=== PATIENT | female | born 1945 | race Caucasian/White ===

== ENCOUNTER 2018-07-10 18:06 | Inpatient (IN) | payer OTHER ==
--- NOTE | 2018-07-10 19:12 | PDOC ---
History of Present Illness - General Chief Complaint: Urinary Problem Stated Complaint: PAINFUL URINATION/LWR BACK PAIN Time Seen by Provider: 07/10/18 19:11 History Source: Patient, Family (Daughter) Exam Limitations: No Limitations - History of Present Illness Initial Comments: Pt is a 73 yo F, with extensive PMH (DM, HTN, HLD, CVA, obesity, recurrent UTI, thrombocytopenia, and asthma), who is presenting with complaints of suprapubic pain, "pressure feeling" with urination/dysuria, and urinary urgency/frequency x3 days. Pt was treated for UTI ~2 weeks ago by her PCP (unsure of which abx she took) for 14 days, and finished about 3 days ago. She has also had constipation x4 days, and took a stool softener with no relief. Pt denies any fevers/chills, headache, vision changes, syncope, chest pain, palpitations, SOB , nausea/vomiting, diarrhea/constipation, or leg swelling. Attempted to call pts pharmacy to determine abx, but pharmacy is closed. Pt PCP out of network. Social: Pt denies any cigarette, alcohol, or drug use. Pt denies any recent travel or sick contacts. Surgical: cholecystectomy 10 years ago. Family: no relevant history. 07/10/18 19:59 Past History - Travel Traveled outside of the country in the last 30 days: No Close contact w/someone who was outside of country & ill: No - Past Medical History Allergies/Adverse Reactions: Allergies Allergy/AdvReac Type Severity Reaction Status Date / Time aspirin AdvReac Unknown Verified 07/10/18 18:12 Home Medications: Ambulatory Orders Danazol [Danocrine -] 200 mg PO BID #0 capsule 09/21/12 Levothyroxine [Synthroid -] 25 mcg PO DAILY #0 tablet 09/21/12 Montelukast Na [Singulair -] 10 mg PO HS #0 tablet 09/21/12 Raloxifene HCl [Evista] 60 mg PO DAILY #0 tablet 09/21/12 Tiotropium [place] [Spiriva] 1 inh IH DAILY #0 inh 09/21/12 Diltiazem HCl [Diltiazem ER] 1 mg PO DAILY 04/04/16 Clopidogrel Bisulfate [Plavix] 75 mg PO DAILY 07/10/18 Dapagliflozin Propanediol [Farxiga] 10 mg PO DAILY 07/10/18 Ergocalciferol (Vitamin D2) [Vitamin D2] 50,000 unit PO WEEKLY 07/10/18 Insulin Glargine,Hum.rec.anlog [Lantus Solostar PEN -] 25 units SQ BID 07/10/18 Insulin NPL/Insulin Lispro [Humalog Mix 50-50 Pen] 25 unit SQ BID 07/10/18 [place]-3 Fatty Acids/Fish Oil [Fish Oil 1,000 mg Capsule] 1 each PO DAILY Omeprazole [Prilosec (RX)] 40 mg PO DAILY 07/10/18 Pioglitazone HCl 45 mg PO DAILY 07/10/18 Rosuvastatin [Crestor -] 20 mg PO DAILY 07/10/18 Anemia: No Asthma: Yes Cancer: No Cardiac Disorders: No CVA: No COPD: No CHF: No Dementia: No Diabetes: Yes GI Disorders: No Disorders: No HTN: Yes Hypercholesterolemia: Yes Liver Disease: No Seizures: No Thyroid Disease: Yes - Surgical History Abdominal Surgery: No Appendectomy: No Cardiac Surgery: No Cholecystectomy: Yes Lung Surgery: No Neurologic Surgery: No Orthopedic Surgery: No - Suicide/Smoking/Psychosocial Hx Smoking Status: No Smoking History: Never smoked Have you smoked in the past 12 months: No Number of Cigarettes Smoked Daily: 0 Hx Alcohol Use: No Drug/Substance Use Hx: No Substance Use Type: None Hx Substance Use Treatment: No Review of Systems - Review of Systems Able to Perform ROS?: Yes Is the patient limited Turkish proficient: No Constitutional: Yes: Loss of Appetite. No: Chills, Diaphoresis, Fever, Malaise , Weakness HEENTM: No: Blurred Vision, Recent change in vision, Nose Congestion, Throat Pain, Throat Swelling, Difficulty Swallowing Respiratory: No: Cough, Orthopnea, Shortness of Breath Cardiac (ROS): No: Chest Pain, Edema, Irregular Heart Rate, Lightheadedness, Palpitations, Syncope, Chest Tightness ABD/GI: Yes: Constipated, Poor Appetite. No: Abdominal Distended, Blood Streaked Bowels, Diarrhea, Nausea, Poor Fluid Intake, Rectal Bleeding, Vomiting , Indigestion : Yes: Burning, Dysuria, Frequency, Pain, Urgency. No: Discharge, Flank Pain , Hematuria, Incontinence Musculoskeletal: No: Back Pain, Joint Pain, Muscle Pain, Muscle Weakness Integumentary: No: Rash Neurological: No: Headache, Numbness, Weakness, Unsteady Gait, Dizziness Psychiatric: No: Change in Appetite Endocrine: No: Increased Urine, Change in Weight Hematologic/Lymphatic: Yes: Blood Clots (CVA, on plavix), Other ( thrombocytopenia in the past, chronic). No: Anemia, Easy Bleeding, Easy Bruising All Other Systems: Reviewed and Negative *Physical Exam - Vital Signs Last Vital Signs Temp Pulse Resp BP Pulse Ox 98.4 F 95 H 18 154/67 96 07/10/18 18:10 07/10/18 18:10 07/10/18 18:10 07/10/18 18:10 07/10/18 18:10 - Physical Exam Comments: Pt mildly tachycardic (95), pt afebrile. Pt in NAD, obese body habitus. PE showed pt alert and oriented. layaway clerk generally intact, muscular strength and sensation intact. Eyes PERRLA, EOMI. Oropharynx without erythema or exudates, no LAD b/l. Dry oral mucosa with decreased skin turgor. No nasal congestion, hearing intact. Clear heart sounds, S1/S2, no JVD, b/l pedal edema, or heart murmur. Clear lung sounds, no respiratory distress, wheezes, crackles, or accessory muscle use. Diffuse lower abdominal tenderness to palpation, no rebound, no guarding. NO CVA tenderness. Abdomen soft, protuberant, and with normoactive bowel sounds. Skin without jaundice or rash. 07/10/18 19:59 Moderate Sedation - Procedure Monitoring Vital Signs: Procedure Monitoring Vital Signs Temperature 98.4 F 07/10/18 18:10 Pulse Rate 95 H 07/10/18 18:10 Respiratory Rate 18 07/10/18 18:10 Blood Pressure 154/67 07/10/18 18:10 O2 Sat by Pulse Oximetry (%) 96 07/10/18 18:10 ED Treatment Course - LABORATORY CBC & Chemistry Diagram: 07/10/18 20:22 07/10/18 20:22 Medical Decision Making - Medical Decision Making Pt was seen at bedside, also will be seen by attending Dr. Joaquin. Pt presenting with complaints of suprapubic pain, "pressure feeling" with urination/dysuria, and urinary urgency/frequency x3 days. Pt was treated for UTI ~2 weeks ago by her PCP (unsure of which abx she took) for 14 days, and finished about 3 days ago. She has also had constipation x4 days, and took a stool softener with no relief. Pt denies any fevers/chills, headache, vision changes, syncope, chest pain, palpitations, SOB, nausea/vomiting, diarrhea/constipation, or leg swelling. Attempted to call pts pharmacy to determine abx, but pharmacy is closed. Pt PCP out of network. Pt mildly tachycardic (95), pt afebrile. Pt in NAD, obese body habitus. PE showed pt alert and oriented. layaway clerk generally intact, muscular strength and sensation intact. Eyes PERRLA, EOMI. Oropharynx without erythema or exudates, no LAD b/l. Dry oral mucosa with decreased skin turgor. No nasal congestion, hearing intact. Clear heart sounds, S1/S2, no JVD, b/l pedal edema, or heart murmur. Clear lung sounds, no respiratory distress, wheezes, crackles, or accessory muscle use. Diffuse lower abdominal tenderness to palpation, no rebound, no guarding. NO CVA tenderness. Abdomen soft, protuberant, and with normoactive bowel sounds. Skin without jaundice or rash. Considering recurrent/resistant UTI vs constipation vs urinary retention vs nephrolithiasis vs pyelonephrosis Ordered work-up including CBC, CMP, UA, urine culture. Provided glycerin suppository, miralax, and 1 L IV NS for improvement of constipation and dehydration. Will continue to reassess pt and monitor for symptomatic improvement. Pt will likely need to be admitted for IV abx if recurrent UTI, as pt already attempted outpatient treatment. 07/10/18 19:47 UA: 3+ gluc/trace ketones, 2+ blood, trace LE, WBC 65, RBC 44 -- providing 1 g IV ceftriaxone. Pt denying pain control at this time. Admission pending lab results. 07/10/18 20:28 CBC: appears hemoconcentrated, WBC 11.1, H/H 15.6/46.3 (far above pt baseline) - - pt receiving IVF 07/10/18 21:05 CMP: BUN/Cr 24/2.4 -- likely TANISHA -- pt receiving fluids Paging hospitalist team for admission. 07/10/18 21:20 Hospitalist team at bedside to see pt. Pt resting comfortably. 07/10/18 22:32 *DC/Admit/Observation/Transfer Diagnosis at time of Disposition: Acute kidney injury Urinary tract infection Qualifiers: Urinary tract infection type: site unspecified Hematuria presence: with hematuria Qualified Code(s): N39.0 - Urinary tract infection, site not specified Diabetes mellitus Qualifiers: Diabetes mellitus type: type 2 Diabetes mellitus usp insulin use: with usp use Diabetes mellitus complication status: with hyperglycemia Qualified Code(s): E11.65 - Type 2 diabetes mellitus with hyperglycemia - Discharge Dispostion Condition at time of disposition: Stable Decision to Admit order: Yes - Referrals Referrals: Marion Machuca MD [Non Staff, Medical] - - Patient Instructions - Post Discharge Activity
[2018-07-10] MEDS ORDERED: SODIUM CHLORIDE 1,000 ML IV STA (19:35)
[2018-07-10 19:37] LABS: URINE APPEARANCE SLCLOUDY; URINE BILIRUBIN NEGATIVE (<2.0 mg/dL); URINE COLOR LTYELLOW; URINE GLUCOSE (UA) 3+ (NEGATIVE); URINE KETONE TRACE (NEGATIVE); URINE LEUK ESTERASE TRACE (NEGATIVE); URINE NITRITE NEGATIVE (NEGATIVE); URINE PROTEIN 2+ (NEGATIVE); URINE UROBILINOGEN NEGATIVE mg/dL (0.2-1.0)
[2018-07-10] MEDS ORDERED: GLYCERIN 1 RECTAL SUPPOSITORY, ADULT PR ONE (19:45)
[2018-07-10] MEDS ORDERED: POLYETHYLENE GLYCOL 3350 119 GM BTL PO ONE (19:45)
[2018-07-10 19:51] LABS: URINE MUCUS RARE
[2018-07-10] MEDS ORDERED: CEFTRIAXONE 1 GM in DEXTROSE 5%-WATER - 100 ML IVPB ONE (20:15)
[2018-07-10 20:37] LABS: BASO % 0.3 % (0-2.0); EOS % 0.7 % (0-4.5); HEMATOCRIT 46.3 % (32.4-45.2); HEMOGLOBIN 15.6 GM/dL (10.7-15.3); LYMPH % 21.9 % (8-40); MCH 25.6 pg (25.7-33.7); MCHC 33.8 g/dl (32.0-36.0); MEAN CELL VOLUME 75.8 fl (80-96); MEAN PLT VOLUME 9.1 fl (7.5-11.1); MONO % 9.1 % (3.8-10.2); PLATELET COUNT 185 K/MM3 (134-434); RBC 6.11 M/mm3 (3.60-5.2); RDW 19.9 % (11.6-15.6); WHITE BLOOD COUNT 11.1 K/mm3 (4.0-10.0)
[2018-07-10] MEDS ORDERED: CEFTRIAXONE 1 GM/50 ML BAG ONE (20:48)
--- NOTE | 2018-07-10 20:51 | PDOC ---
Attending Attestation - HPI HPI: 07/10/18 21:04 The patient is a 73 year old female, with a significant past medical history of thrombocytopenia, asthma, DM, HTN, HLD, and recurrent UTIs, who presents to the emergency department with, suprapubic pain, urinary frequency, and dysuria. Patient was recently treated for a UTI on a 14 day, outpatient PO unknown antibiotics by her PCP Dr. Marion Machuca which she finished 3 days ago. While in the ED, patient endorses a diffuse itchy rash to the left arm/diffuse back and 4 days of constipation. She denies recent fevers, chills, headache or dizziness. She denies recent nausea, vomit, or diarrhea. She denies recent chest pain or shortness of breath. Allergies: Aspirin Past surgical history: Cholecystectomy: Social history: Nonsmoker. Denies EtOH use and recreational drug use. Primary Care Physician: Dr. Marion Machuca [phone] - Physicial Exam PE: 07/10/18 21:04 GENERAL: Awake, alert, and fully oriented, in no acute distress HEAD: No signs of trauma EYES: PERRLA, EOMI, sclera anicteric, conjunctiva clear ENT: Auricles normal inspection, hearing grossly normal, nares patent, oropharynx clear without exudates. Moist mucosa NECK: Normal ROM, supple, no lymphadenopathy, JVD, or masses LUNGS: Breath sounds equal, clear to auscultation bilaterally. No wheezes, and no crackles HEART: Regular rate and rhythm, normal S1 and S2, no murmurs, rubs or gallops +ABDOMEN: Suprapubic tenderness. Soft, normoactive bowel sounds. No guarding, no rebound. No masses EXTREMITIES: Normal range of motion, no edema. No clubbing or cyanosis. No cords, erythema, or tenderness NEUROLOGICAL: Cranial nerves II through XII grossly intact. Normal speech, normal gait +SKIN: Skin irritation to the left arm and diffuse back. <Rk Negron - Last Filed: 07/10/18 21:04> - Resident Resident Name: Gloria Martin - ED Attending Attestation I have performed the following: I have examined & evaluated the patient, The case was reviewed & discussed with the resident, I agree w/resident's findings & plan - Medical Decision Making 07/10/18 20:50 Pt has not eated much today; she is dehydrated. She keeps running to the bathroom with urinary frequency. Pt will be hydrated and we will treat her with IVabx. UA demonstrates UTI. She has elevated blood sugar. 07/10/18 21:27 Pt will be admitted for IV abx and hydration, as she has TANISHA, and as her UTI failed outpatient treatment recently. <Sherine Joaquin - Last Filed: 07/10/18 21:28> Attestations - Attestations 07/10/18 21:05 Documentation prepared by Rk Negron, acting as claim review medical director for Sherine Joaquin MD. <Rk Negron - Last Filed: 07/10/18 21:04>
[2018-07-10 21:08] LABS: ALBUMIN 2.7 g/dl (3.4-5.0); ALK PHOS 167 U/L (45-117); ANION GAP 12 MMOL/L (8-16); BILIRUBIN,TOTAL 0.6 mg/dL (0.2-1); BLOOD UREA NITROGEN 21 mg/dL (7-18); CALCIUM 9.2 mg/dL (8.5-10.1); CHLORIDE 98 mmol/L (98-107); CO2 24 mmol/L (21-32); CREATININE 2.4 mg/dL (0.55-1.3); GLUCOSE,RANDOM 156 mg/dL (74-106); POTASSIUM 3.5 mmol/L (3.5-5.1); SGOT/AST 43 U/L (15-37); SGPT/ALT 37 U/L (13-61); SODIUM 133 mmol/L (136-145); TOT PROT 7.6 g/dl (6.4-8.2)
--- NOTE | 2018-07-10 22:56 | PN ---
Teaching Attending Note Name of Resident: Silverio Matamoros ATTENDING PHYSICIAN STATEMENT I saw and evaluated the patient. I reviewed the resident's note and discussed the case with the resident. I agree with the resident's findings and plan as documented. SUBJECTIVE: Seen and examined; please refer to resident note for further historical information. lesley, king is a 73 y/o female presenting to the ER with a CC of suprapubic tenderness and dysuria; she was recently treated for UTI as an OP with unknown abx (calling pharmacy and family to bring in bottle to verify) and has been off them for 3 days; sx continued to develop and were associated with transient anorexia this AM so she came to the hospital with her family. She is afebrile and hemodynamically stable with a positive UA with symptoms of dysuria , frequency, SPT. Her bladder was somewhat distended on exam. She reveals she hasn't had a BM in ~4-5 days. She will be brought to the medicine service on observation 10 sys ROS done and negative aside from HPI PMH, PSH, Family hx, Social hx reviewed OBJECTIVE: VS, labs, imaging reviewed NAD, AAO, resting comfortably in bed NC AT EOMI PERRLA Suprapubic tenderness with palpable blader. Abdomen non-tender but tympanic and distended which is normal for the patient per the daughter. She has chronic constipation issues, apparently. RRR s1/2 no mgr Lungs CTAB w/ sym exp Normal mood, appropriate affect ASSESSMENT AND PLAN: Patient presents with acute cystitis after recently completing OP tx with unknown abx; is also acute on chronically constipated. 1) Acute Cystitis w/ hematuria, recurrent -1g Ceftriaxone IV QD and followup blood/urine cx. Complete course abx and close OP FU. -Obtaining OP records to discern what she was on 2) Constipation -Chronic issue that is acutely worse; continue PRN Miralax QD and giving a dose of lactulose now. Given the chronicity of the problem she would benefit from seeing GI as an outpatient. 3) CKD vs ?TANISHA -Hydrate, calculate FEUREA and obtain DARRIUS; may be sales representative metals of baseline renal function given poor function noted several years ago -Follow BMP and UOP 4) DM -Continue insulin 5) HTN -Continue home meds 6) Transaminitis -Trend CMP, consider further imaging. Can have nonpathalogical alk phos elevation in elderly FENA
[2018-07-10] MEDS ORDERED: LACTULOSE 20 GM/30 ML UDC (FOR ORAL USE ONLY) PO ONE (23:12)
--- NOTE | 2018-07-10 23:22 | HP ---
<Silverio Matamoros - Last Filed: 07/10/18 23:27> CHIEF COMPLAINT: dysuria PCP: Dr. Ridge Machuca HISTORY OF PRESENT ILLNESS: 73 y/o F w/PMH of IDDM, HTN, HLD, hypothyroidism presents to the ER for dysuria for the past 3 days. She is Armenian speaking and history was translated by daughter at bedside. She was given 2 weeks of abx for UTI and completed it 3 days ago and felt better until abx were finished symptoms returned. She doesn't recall which abx she was on. Since abx was completed she has had dysuria, frequency, incomplete emptying, and lower abd pain. She has also been constipated for the last 4 days. She denies N/V/F/C, SOB, CP, SY, light- headedness, dizziness, LE edema. ER course was notable for: (1) Ceftriaxone, Glycerin suppository, NS 1L (2) (3) Recent Travel: denies PAST MEDICAL HISTORY: IDDM, HTN, HLD, hypothyroidism PAST SURGICAL HISTORY: cholecystectomy 10 years ago Social History: Smoking: denies Alcohol: denies Drugs: denies Family History: n-c Allergies aspirin Adverse Reaction (Unknown, Verified 07/10/18 18:12) INSTRUCTED BY PMD TO NOT TAKE DUE TO ASTHMA HOME MEDICATIONS: Home Medications Medication Instructions Recorded Danazol [Danocrine -] 200 mg PO BID #0 capsule 09/21/12 Levothyroxine [Synthroid -] 25 mcg PO DAILY #0 tablet 09/21/12 Montelukast Na [Singulair -] 10 mg PO HS #0 tablet 09/21/12 Raloxifene HCl [Evista] 60 mg PO DAILY #0 tablet 09/21/12 Tiotropium [place] [Spiriva] 1 inh IH DAILY #0 inh 09/21/12 Diltiazem HCl [Diltiazem ER] 1 mg PO DAILY 04/04/16 Clopidogrel Bisulfate [Plavix] 75 mg PO DAILY 07/10/18 Dapagliflozin Propanediol [Farxiga] 10 mg PO DAILY 07/10/18 Ergocalciferol (Vitamin D2) 50,000 unit PO WEEKLY 07/10/18 [Vitamin D2] Insulin Glargine,Hum.rec.anlog 25 units SQ BID 07/10/18 [Lantus Solostar PEN -] Insulin NPL/Insulin Lispro 25 unit SQ BID 07/10/18 [Humalog Mix 50-50 Pen] [place]-3 Fatty Acids/Fish Oil [Fish 1 each PO DAILY 07/10/18 Oil 1,000 mg Capsule] Omeprazole [Prilosec (RX)] 40 mg PO DAILY 07/10/18 Pioglitazone HCl 45 mg PO DAILY 07/10/18 Rosuvastatin [Crestor -] 20 mg PO DAILY 07/10/18 REVIEW OF SYSTEMS CONSTITUTIONAL: Absent: fever, chills CARDIOVASCULAR: Absent: chest pain, peripheral edema RESPIRATORY: Absent: cough, shortness of breath GASTROINTESTINAL: +lower abd pain Absent: nausea, vomiting, diarrhea GENITOURINARY: +dysuria, frequency, incomplete emptying Absent: hematuria NEUROLOGIC: Absent: headache, dizziness, mental status changes PHYSICAL EXAMINATION Vital Signs - 24 hr 07/10/18 07/10/18 18:10 19:17 Temperature 98.4 F 98.4 F Pulse Rate 95 H Pulse Rate [ 95 H Left Radial] Respiratory 18 18 Rate Blood Pressure 154/67 Blood Pressure 154/67 [Right Arm] O2 Sat by Pulse 96 99 Oximetry (%) GENERAL: Awake, alert, and fully oriented, in no acute distress. EYES: extraocular movements intact, sclera anicteric, conjunctiva clear. EARS, NOSE, THROAT: Ears normal, nares patent LUNGS: Breath sounds equal, clear to auscultation bilaterally. HEART: Regular rate and rhythm, normal S1 and S2 ABDOMEN: +Suprapubic tenderness and fullness. Soft, not distended, normoactive bowel sounds LOWER EXTREMITIES: warm, well-perfused. No peripheral edema. NEUROLOGICAL: Cranial nerves II-XII grossly intact. Normal speech. Gait not observed. PSYCHIATRIC: Cooperative. Good eye contact. Appropriate mood and affect. SKIN: Warm, dry Laboratory Results - last 24 hr 07/10/18 07/10/18 07/10/18 19:25 20:22 20:22 WBC 11.1 H RBC 6.11 H Hgb 15.6 H Hct 46.3 H D MCV 75.8 L MCH 25.6 L MCHC 33.8 RDW 19.9 H Plt Count 185 D MPV 9.1 D Absolute Neuts (auto) 7.6 Neutrophils % 68.0 Lymphocytes % 21.9 Monocytes % 9.1 Eosinophils % 0.7 Basophils % 0.3 Nucleated RBC % 0 Sodium 133 L Potassium 3.5 Chloride 98 Carbon Dioxide 24 Anion Gap 12 BUN 21 H Creatinine 2.4 H Creat Clearance w eGFR 19.84 Random Glucose 156 H Calcium 9.2 Total Bilirubin 0.6 AST 43 H ALT 37 Alkaline Phosphatase 167 H Total Protein 7.6 Albumin 2.7 L Urine Color Ltyellow Urine Appearance Slcloudy Urine pH 5.0 Ur Specific [place] 1.011 Urine Protein 2+ H Urine Glucose (UA) 3+ H Urine Ketones Trace H Urine Blood 2+ H Urine Nitrite Negative Urine Bilirubin Negative Urine Urobilinogen Negative Ur Leukocyte Esterase Trace Urine WBC (Auto) 65 Urine RBC (Auto) 44 Urine Mucus Rare ASSESSMENT/PLAN: 73 y/o F w/PMH of IDDM, HTN, HLD, hypothyroidism presents to the ER for dysuria for the past 3 days. Failed outpatient therapy. -UTI -c/w ceftriaxone 1 g qd -f/u UCx -Called pharmacy to find out which medication she was on but it's closed. [facility]: [phone] -Bladder scan, straight cath if retaining urine -Constipation -given miralax and glycerin suppository in ER. Still constipated. -Will give lactulose once -IDDM -BGMs, ISS ACHS -Hypothyroidism -synthroid 25 mcg qAM -CAD -c/w plavix -HTN -c/w diltiazem ER 360 mg po qd -HLD -c/w rosuvastatin 20mg po qhs -DVT ppx -Heparin sq 5000 q8h -FEN -No fluids currently -monitor electrolytes -Diabetic, cardiac diet -Dispo: Obs M/S Visit type - Emergency Visit Emergency Visit: Yes Care time: The patient presented to the Emergency Department on the above date and was hospitalized for further evaluation of their emergent condition. - New Patient This patient is new to me today: Yes Date on this admission: 07/10/18 - Critical Care Critical Care patient: No <Eduardo Bates - Last Filed: 07/26/18 21:09> Seen and examined; agree with the above aside from what is supplemented by myself in my own documentation. Reviewed all perez parts of history and exam with resident team and verified independently.
[2018-07-11] MEDS ORDERED: HEPARIN NA (PORCINE) 5,000 UNITS/ML 1ML VIAL ONE (00:16)
[2018-07-11] MEDS ORDERED: LACTULOSE 20 GM/30 ML UDC (FOR ORAL USE ONLY) ONE (00:16)
[2018-07-11] MEDS: HEPARIN NA (PORCINE) 5,000 UNITS/ML 1ML VIAL SQ SCH ×4 (00:28→21:26)
[2018-07-11 02:33] VITALS: BMI 38.4
[2018-07-11] MEDS: ACETAMINOPHEN 325 MG TABLET (FP) PO PRN ×2 (06:11→13:14)
[2018-07-11] MEDS: LEVOTHYROXINE NA 25 MCG TABLET (FP) PO SCH (06:14)
[2018-07-11] MEDS ORDERED: INSULIN SLIDING SCALE (NOVOLOG) 1 VIAL SQ SCH (07:00)
[2018-07-11 08:14] LABS: BASO % 0.5 % (0-2.0); EOS % 0.8 % (0-4.5); HEMATOCRIT 43.9 % (32.4-45.2); HEMOGLOBIN 14.6 GM/dL (10.7-15.3); MCH 25.4 pg (25.7-33.7); MCHC 33.3 g/dl (32.0-36.0); MEAN CELL VOLUME 76.3 fl (80-96); MEAN PLT VOLUME 9.1 fl (7.5-11.1); MONO % 10.2 % (3.8-10.2); NEUT % 67.5 % (42.8-82.8); PLATELET COUNT 167 K/MM3 (134-434); RBC 5.75 M/mm3 (3.60-5.2); RDW 19.7 % (11.6-15.6); WHITE BLOOD COUNT 8.4 K/mm3 (4.0-10.0)
[2018-07-11 08:45] LABS: ALBUMIN 2.3 g/dl (3.4-5.0); ALK PHOS 145 U/L (45-117); ANION GAP 7 MMOL/L (8-16); BILIRUBIN,TOTAL 0.5 mg/dL (0.2-1); BLOOD UREA NITROGEN 20 mg/dL (7-18); CALCIUM 8.3 mg/dL (8.5-10.1); CHLORIDE 111 mmol/L (98-107); CO2 24 mmol/L (21-32); CREATININE 2.1 mg/dL (0.55-1.3); GLUCOSE,RANDOM 126 mg/dL (74-106); MAGNESIUM 2.3 mg/dL (1.8-2.4); PHOSPHOROUS 3.2 mg/dL (2.5-4.9); POTASSIUM 3.3 mmol/L (3.5-5.1); SGOT/AST 41 U/L (15-37); SGPT/ALT 34 U/L (13-61); SODIUM 142 mmol/L (136-145); TOT PROT 6.6 g/dl (6.4-8.2)
[2018-07-11] MEDS ORDERED: cefTRIAXone SODIUM 1 GM VIAL ONE (09:05)
[2018-07-11] MEDS ORDERED: DEXTROSE 5%-WATER - 50 ML IVPB ONE (09:05)
[2018-07-11] MEDS ORDERED: ROSUVASTATIN CA 10 MG TABLET (FP) ONE (09:05)
[2018-07-11] MEDS ORDERED: FLU VACCINE QUAD 60 MCG/0.5 ML (MDV 18-19) IM ONE (10:00)
[2018-07-11] MEDS ORDERED: PHENAZOPYRIDINE HCL 100 MG TABLET (FP) PO PRN (10:09)
[2018-07-11] MEDS ORDERED: POTASSIUM CHLORIDE TABS 20 MEQ TABLET.ER (FP) PO ONE (10:10)
--- NOTE | 2018-07-11 10:32 | PN ---
Progress Note (short form) - Note Progress Note: Subjective: No fever or chills . denies abd pain, but has severe dysuria and frequent urination , feels very dry . reports being on lasix at home. no BM in 7 days Objective: Vital Signs: Last Vital Signs Temp Pulse Resp BP Pulse Ox 98.8 F 98 H 20 132/75 98 07/11/18 06:00 07/11/18 06:00 07/11/18 06:00 07/11/18 06:00 07/11/18 03:00 Laboratory Results - last 24 hr 07/10/18 07/10/18 07/10/18 19:25 20:22 20:22 WBC 11.1 H RBC 6.11 H Hgb 15.6 H Hct 46.3 H D MCV 75.8 L MCH 25.6 L MCHC 33.8 RDW 19.9 H Plt Count 185 D MPV 9.1 D Absolute Neuts (auto) 7.6 Neutrophils % 68.0 Lymphocytes % 21.9 Monocytes % 9.1 Eosinophils % 0.7 Basophils % 0.3 Nucleated RBC % 0 Sodium 133 L Potassium 3.5 Chloride 98 Carbon Dioxide 24 Anion Gap 12 BUN 21 H Creatinine 2.4 H Creat Clearance w eGFR 19.84 POC Glucometer Random Glucose 156 H Calcium 9.2 Phosphorus Magnesium Total Bilirubin 0.6 GGT AST 43 H ALT 37 Alkaline Phosphatase 167 H Total Protein 7.6 Albumin 2.7 L Urine Color Ltyellow Urine Appearance Slcloudy Urine pH 5.0 Ur Specific [place] 1.011 Urine Protein 2+ H Urine Glucose (UA) 3+ H Urine Ketones Trace H Urine Blood 2+ H Urine Nitrite Negative Urine Bilirubin Negative Urine Urobilinogen Negative Ur Leukocyte Esterase Trace Urine WBC (Auto) 65 Urine RBC (Auto) 44 Urine Mucus Rare 07/11/18 07/11/18 07/11/18 00:35 06:12 07:10 WBC 8.4 RBC 5.75 H Hgb 14.6 Hct 43.9 MCV 76.3 L MCH 25.4 L MCHC 33.3 RDW 19.7 H Plt Count 167 MPV 9.1 Absolute Neuts (auto) 5.7 Neutrophils % 67.5 Lymphocytes % 21.0 Monocytes % 10.2 Eosinophils % 0.8 Basophils % 0.5 Nucleated RBC % 0 Sodium Potassium Chloride Carbon Dioxide Anion Gap BUN Creatinine Creat Clearance w eGFR POC Glucometer 156 Random Glucose Calcium Phosphorus Magnesium Total Bilirubin GGT 340 H AST ALT Alkaline Phosphatase Total Protein Albumin Urine Color Urine Appearance Urine pH Ur Specific [place] Urine Protein Urine Glucose (UA) Urine Ketones Urine Blood Urine Nitrite Urine Bilirubin Urine Urobilinogen Ur Leukocyte Esterase Urine WBC (Auto) Urine RBC (Auto) Urine Mucus 07/11/18 07:10 WBC RBC Hgb Hct MCV MCH MCHC RDW Plt Count MPV Absolute Neuts (auto) Neutrophils % Lymphocytes % Monocytes % Eosinophils % Basophils % Nucleated RBC % Sodium 142 Potassium 3.3 L Chloride 111 H Carbon Dioxide 24 Anion Gap 7 L BUN 20 H Creatinine 2.1 H Creat Clearance w eGFR 23.15 POC Glucometer Random Glucose 126 H Calcium 8.3 L Phosphorus 3.2 Magnesium 2.3 Total Bilirubin 0.5 GGT AST 41 H ALT 34 Alkaline Phosphatase 145 H Total Protein 6.6 Albumin 2.3 L Urine Color Urine Appearance Urine pH Ur Specific [place] Urine Protein Urine Glucose (UA) Urine Ketones Urine Blood Urine Nitrite Urine Bilirubin Urine Urobilinogen Ur Leukocyte Esterase Urine WBC (Auto) Urine RBC (Auto) Urine Mucus Physical Exam: NAD, awake, alert, urinated 3 times in bathroom during encouter . HEENT: very dry MM, full neck CV: RRR, no MRG Lungs:CTAB Abd: obese, TTP i n suprapubic area , LLQ and RLQ. nl BS . scratch ace, dry skin Ext: no edema or erythema, dry skin, no fungal infection in toe webs Assessment/Plan: 73 y/o lady with h/o HTN, DM, HL, hypothyroidism, and recent Dx and Rx for UTI ( finished abx 3 days prior), who presented with severe dysuria and was found to have UTI and TANISHA 1- Uncomplicated UTI, - cont ceftriaxone - add IVF, very dry - follow urine cx - in am , will obtain urine cx report from PCP. - give perydium fro severe dysuria - treat constipation as might be contributing 2- TANISHA : likely due to volume depletion as looks dry on exam .Also, has severe constipation ( no BM in 7 days ), and mechanical obstruction need to be r/o - check renal US - start IVF 3- Hypokalemia: replete 4- h/o DM : takes Humolog 50/50 25 units before dinner and lantus 25 units at Hs if sugar > 150 . - will start low dose levemir at HS and monitor 5- HTN: cont cardizem 6- elevated Alk phos and ALT, trend. if worse, will get US DVT px unable to reach her pharmacy ( [phone]) to confirm meds. will ask family to bring meds Visit type - Emergency Visit Emergency Visit: Yes ED Registration Date: 07/10/18 Care time: The patient presented to the Emergency Department on the above date and was hospitalized for further evaluation of their emergent condition. - New Patient This patient is new to me today: Yes Date on this admission: 07/11/18 - Critical Care Critical Care patient: No - Discharge Referral Referred to [facility] Med [facility] No
[2018-07-11] MEDS: CEFTRIAXONE 1 GM in DEXTROSE 5%-WATER - 50 ML IVPB SCH (10:56)
[2018-07-11] MEDS: CLOPIDOGREL BISULFATE 75 MG TABLET (FP) PO SCH (10:57)
[2018-07-11] MEDS: ROSUVASTATIN CA 20 MG TABLET (FP) PO SCH (10:57)
[2018-07-11] MEDS: SODIUM CHLORIDE 1,000 ML IV SCH (10:58)
[2018-07-11] MEDS: POLYETHYLENE GLYCOL 3350 119 GM BTL PO SCH (11:19)
[2018-07-11] MEDS: INSULIN SLIDING SCALE (NOVOLOG) 1 VIAL SQ SCH ×2 (12:32→18:12)
[2018-07-11] MEDS ORDERED: PT OWN MED DRAWER 7, Y5N ONE (20:08)
[2018-07-11] MEDS: SENNOSIDES/DOCUSATE COMBO (SENNA PLUS) TABLET (UD) PO SCH (21:26)
[2018-07-11] MEDS: MONTELUKAST NA 10 MG TABLET PO SCH (21:26)
[2018-07-11] MEDS: INSULIN (LEVEMIR) 100 UNITS/ML UNITS SQ SCH (21:29)
--- NOTE | 2018-07-11 22:08 | EKG ---
Test Reason : Blood Pressure : / mmHG Vent. Rate : 092 BPM Atrial Rate : 092 BPM P-R Int : 162 ms QRS Dur : 122 ms QT Int : 402 ms P-R-T Axes : 037 -61 043 degrees QTc Int : 497 ms NORMAL SINUS RHYTHM RIGHT BUNDLE BRANCH BLOCK LEFT ANTERIOR FASCICULAR BLOCK BIFASCICULAR BLOCK ABNORMAL ECG WHEN COMPARED WITH ECG OF 16-SEP-2012 09:11, NO SIGNIFICANT CHANGE WAS FOUND Confirmed by JANELLE RIZZO MD ([id number]) on 07/11/2018 10:08:07 PM Referred By: Confirmed By:JANELLE RIZZO MD
[2018-07-12] MEDS: HEPARIN NA (PORCINE) 5,000 UNITS/ML 1ML VIAL SQ SCH ×3 (06:03→21:20)
[2018-07-12] MEDS: INSULIN SLIDING SCALE (NOVOLOG) 1 VIAL SQ SCH ×3 (06:06→16:40)
[2018-07-12] MEDS: LEVOTHYROXINE NA 25 MCG TABLET (FP) PO SCH (06:10)
[2018-07-12 07:37] LABS: EOS % 1.7 % (0-4.5); HEMATOCRIT 45.9 % (32.4-45.2); HEMOGLOBIN 15.2 GM/dL (10.7-15.3); LYMPH % 25.4 % (8-40); MCH 25.4 pg (25.7-33.7); MEAN CELL VOLUME 77.1 fl (80-96); MEAN PLT VOLUME 9.1 fl (7.5-11.1); MONO % 11.4 % (3.8-10.2); NEUT % 60.5 % (42.8-82.8); PLATELET COUNT 214 K/MM3 (134-434); RBC 5.96 M/mm3 (3.60-5.2); RDW 19.9 % (11.6-15.6); WHITE BLOOD COUNT 11.2 K/mm3 (4.0-10.0)
[2018-07-12 08:07] LABS: ALBUMIN 2.5 g/dl (3.4-5.0); BILIRUBIN,DIRECT 0.4 mg/dL (0.0-0.2); BILIRUBIN,TOTAL 0.6 mg/dL (0.2-1); TOT PROT 7.1 g/dl (6.4-8.2)
[2018-07-12 08:11] LABS: ANION GAP 15 MMOL/L (8-16); BLOOD UREA NITROGEN 17 mg/dL (7-18); CALCIUM 9.4 mg/dL (8.5-10.1); CHLORIDE 103 mmol/L (98-107); CO2 23 mmol/L (21-32); CREATININE 2.1 mg/dL (0.55-1.3); GLUCOSE,RANDOM 108 mg/dL (74-106); MAGNESIUM 2.3 mg/dL (1.8-2.4); POTASSIUM 4.2 mmol/L (3.5-5.1); SODIUM 140 mmol/L (136-145)
--- NOTE | 2018-07-12 08:47 | PN ---
Physical Exam: SUBJECTIVE: Patient seen and examined at bedside- no acute events overnight patient states that she is feeling better; she is no longer having any burnning on urination; denies any CP/SOB/N/V fevers or chills OBJECTIVE: Vital Signs Period Temp Pulse Resp BP Sys/Muller Pulse Ox Last 24 Hr 98.1 F-98.9 F 94-97 18-20 118-147/43-78 96 GENERAL: The patient is awake, alert, and fully oriented, in no acute distress. EYES: PEERLA; EOMI; no scleral icterus NECK: no JVD; no lymphadenopathy. LUNGS: CTA b/L; no rales, rhonchi or wheezing HEART: Regular rate and rhythm, S1, S2 without murmur, rub or gallop. ABDOMEN: Soft, nontender, nondistended, normoactive bowel sounds, no guarding, no rebound, no hepatosplenomegaly, no masses. EXTREMITIES: 2+ pulses, warm, well-perfused, no edema. NEUROLOGICAL: Cranial nerves II through XII grossly intact. Normal speech, gait not observed. PSYCH: Normal mood, normal affect. SKIN: Warm, dry, normal turgor, no rashes or lesions noted Laboratory Results - last 24 hr 07/11/18 07/11/18 07/11/18 12:23 17:48 21:28 WBC RBC Hgb Hct MCV MCH MCHC RDW Plt Count MPV Absolute Neuts (auto) Neutrophils % Lymphocytes % Monocytes % Eosinophils % Basophils % Nucleated RBC % Sodium Potassium Chloride Carbon Dioxide Anion Gap BUN Creatinine Creat Clearance w eGFR POC Glucometer 151 116 143 Random Glucose Calcium Phosphorus Magnesium Total Bilirubin Direct Bilirubin AST ALT Alkaline Phosphatase Total Protein Albumin 07/12/18 07/12/18 07/12/18 06:02 06:10 06:10 WBC 11.2 H RBC 5.96 H Hgb 15.2 Hct 45.9 H MCV 77.1 L MCH 25.4 L MCHC 33.0 RDW 19.9 H Plt Count 214 D MPV 9.1 Absolute Neuts (auto) 6.8 Neutrophils % 60.5 Lymphocytes % 25.4 D Monocytes % 11.4 H Eosinophils % 1.7 D Basophils % 1.0 Nucleated RBC % 0 Sodium 140 Potassium 4.2 Chloride 103 Carbon Dioxide 23 Anion Gap 15 BUN 17 Creatinine 2.1 H Creat Clearance w eGFR 23.15 POC Glucometer 90 Random Glucose 108 H Calcium 9.4 Phosphorus 4.0 Magnesium 2.3 Total Bilirubin Direct Bilirubin AST ALT Alkaline Phosphatase Total Protein Albumin 07/12/18 06:10 WBC RBC Hgb Hct MCV MCH MCHC RDW Plt Count MPV Absolute Neuts (auto) Neutrophils % Lymphocytes % Monocytes % Eosinophils % Basophils % Nucleated RBC % Sodium Potassium Chloride Carbon Dioxide Anion Gap BUN Creatinine Creat Clearance w eGFR POC Glucometer Random Glucose Calcium Phosphorus Magnesium Total Bilirubin 0.6 Direct Bilirubin 0.4 H AST 52 H ALT 37 Alkaline Phosphatase 142 H Total Protein 7.1 Albumin 2.5 L Active Medications Generic Name Dose Route Start Last Admin Trade Name Freq PRN Reason Stop Dose Admin Acetaminophen 650 mg 07/10/18 23:29 07/11/18 13:14 Tylenol - PO 650 mg Q4H PRN Administration PAIN Clopidogrel Bisulfate 75 mg 07/11/18 10:00 07/11/18 10:57 Plavix - PO 75 mg DAILY MAURICIO Administration Diltiazem HCl 360 mg 07/11/18 10:00 07/11/18 10:56 Cardizem Cd - PO 360 mg DAILY MAURICIO Administration Heparin Sodium (Porcine) 5,000 unit 07/10/18 23:45 07/12/18 06:03 Heparin - SQ 5,000 unit TID MAURICIO Administration Ceftriaxone Sodium 1 gm/ 50 mls @ 100 mls/hr 07/11/18 10:00 07/11/18 10:56 Dextrose IVPB 100 mls/hr DAILY MAURICIO Administration Sodium Chloride 1,000 mls @ 100 mls/hr 07/11/18 10:30 07/11/18 10:58 Normal Saline - IV 100 mls/hr ASDIR MAURICIO Administration Insulin Aspart 1 vial 07/11/18 11:00 07/12/18 06:06 Novolog Vial Sliding Scale - SQ Not Given TIDAC [facility] Protocol Insulin Detemir 10 units 07/11/18 22:00 07/11/18 21:29 Levemir Vial SQ 10 units HS MAURICIO Administration Levothyroxine Sodium 25 mcg 07/11/18 07:00 07/12/18 06:10 Synthroid - PO 25 mcg DAILY@0700 MAURICIO Administration Montelukast Sodium 10 mg 07/11/18 22:00 07/11/18 21:26 Singulair - PO 10 mg HS MAURICIO Administration Phenazopyridine HCl 100 mg 07/11/18 10:09 07/11/18 11:48 Pyridium - PO 100 mg Q8H PRN Administration dysuria Polyethylene Glycol 17 gm 07/12/18 10:00 07/11/18 11:19 Miralax (For Daily Use) - PO 17 gm DAILY MAURICIO Administration Rosuvastatin Calcium 20 mg 07/11/18 10:00 07/11/18 10:57 Crestor - PO 20 mg DAILY MAURICIO Administration Senna/Docusate Sodium 1 tablet 07/11/18 22:00 07/11/18 21:26 Pericolace - PO 1 tablet BID MAURICIO Administration ASSESSMENT/PLAN: 73 y/o F w/PMH of IDDM, HTN, HLD, hypothyroidism presents to the ER for dysuria for the past 3 days. Failed outpatient therapy. -UTI -c/w ceftriaxone 1 g qd -f/u UCx -Called pharmacy to find out which medication she was on but it's closed. [facility]: [phone] -renal u/s showed no evidence of hydro -will need outpatient followup for recurrent UTI -Constipation -resolved -IDDM -BGMs, ISS ACHS -levemir 10 units ACHS -Hypothyroidism -synthroid 25 mcg qAM -CAD -c/w plavix -HTN -c/w diltiazem ER 360 mg po qd -HLD -c/w rosuvastatin 20mg po qhs -DVT ppx -Heparin sq 5000 q8h -FEN -No fluids currently -monitor electrolytes -Diabetic, cardiac diet Problem List - Problems (1) Acute kidney injury Code(s): N17.9 - ACUTE KIDNEY FAILURE, UNSPECIFIED (2) Diabetes mellitus Code(s): E11.9 - TYPE 2 DIABETES MELLITUS WITHOUT COMPLICATIONS Qualifiers: Diabetes mellitus type: type 2 Diabetes mellitus correction insulin use: with correction use Diabetes mellitus complication status: with hyperglycemia Qualified Code(s): E11.65 - Type 2 diabetes mellitus with hyperglycemia; Z79.4 - termite technician (current) use of insulin (3) Urinary tract infection Code(s): N39.0 - URINARY TRACT INFECTION, SITE NOT SPECIFIED Qualifiers: Urinary tract infection type: site unspecified Hematuria presence: with hematuria Qualified Code(s): N39.0 - Urinary tract infection, site not specified; R31.9 - Hematuria, unspecified Visit type - Emergency Visit Emergency Visit: Yes ED Registration Date: 07/10/18 Care time: The patient presented to the Emergency Department on the above date and was hospitalized for further evaluation of their emergent condition. - New Patient This patient is new to me today: Yes Date on this admission: 07/12/18 - Critical Care Critical Care patient: No
[2018-07-12] MEDS ORDERED: ROSUVASTATIN CA 10 MG TABLET (FP) ONE (08:48)
[2018-07-12] MEDS ORDERED: DEXTROSE 5%-WATER - 50 ML IVPB ONE (08:48)
[2018-07-12] MEDS ORDERED: cefTRIAXone SODIUM 1 GM VIAL ONE (08:48)
[2018-07-12] MEDS: ROSUVASTATIN CA 20 MG TABLET (FP) PO SCH (09:20)
[2018-07-12] MEDS: CLOPIDOGREL BISULFATE 75 MG TABLET (FP) PO SCH (09:20)
[2018-07-12] MEDS: CEFTRIAXONE 1 GM in DEXTROSE 5%-WATER - 50 ML IVPB SCH (09:20)
[2018-07-12] MEDS: SENNOSIDES/DOCUSATE COMBO (SENNA PLUS) TABLET (UD) PO SCH ×2 (09:20→21:21)
[2018-07-12] MEDS: POLYETHYLENE GLYCOL 3350 119 GM BTL PO SCH (09:40)
[2018-07-12] MEDS: SODIUM CHLORIDE 1,000 ML IV SCH ×2 (11:15→18:19)
--- NOTE | 2018-07-12 12:32 | PN ---
Teaching Attending Note Name of Resident: Sade Xiao ATTENDING PHYSICIAN STATEMENT I saw and evaluated the patient. I reviewed the resident's note and discussed the case with the resident. I agree with the resident's findings and plan as documented. SUBJECTIVE: No fever or chills . feels much better . has no abd pain or flank pain. dyusria improved and resolved. OBJECTIVE: NAD, awake HEENT: slightly dry MM CV: RRR, no MRG Lungs:CTAB Abd: obese, NT, NB , Nl BS Ext: no edema or erythema Assessment/Plan: 73 y/o lady with h/o HTN, DM, HL, hypothyroidism, and recent Dx and Rx for UTI ( finished abx 3 days prior), who presented with severe dysuria and was found to have UTI and TANISHA 1- UTI with leukocytosis , will treat for complicated UTI/pyelo, - cont ceftriaxone - co nt IVF - Urine cx with no growth but was on recent abx - she showed me 2 bottles of Abx: levaquin in May, and cipro in Jun. - cont perydium - uro f.u as out pt 2- TANISHA : due to volume depletion - cont IVF . US reviewed 3- Hypokalemia: resolved 4- h/o DM : - cont levemir at HS 5- HTN: cont cardizem 6- Elevated Alk phos and ALT, improved: trend DVT px HLOC
[2018-07-12] MEDS: MONTELUKAST NA 10 MG TABLET PO SCH (21:21)
[2018-07-12] MEDS: INSULIN (LEVEMIR) 100 UNITS/ML UNITS SQ SCH (21:21)
[2018-07-13] MEDS: SODIUM CHLORIDE 1,000 ML IV SCH ×3 (05:34→16:53)
[2018-07-13] MEDS: HEPARIN NA (PORCINE) 5,000 UNITS/ML 1ML VIAL SQ SCH ×3 (05:35→21:47)
[2018-07-13] MEDS: LEVOTHYROXINE NA 25 MCG TABLET (FP) PO SCH (06:37)
[2018-07-13] MEDS: INSULIN SLIDING SCALE (NOVOLOG) 1 VIAL SQ SCH ×3 (06:37→16:39)
[2018-07-13 08:00] LABS: HEMATOCRIT 42.1 % (32.4-45.2); HEMOGLOBIN 13.9 GM/dL (10.7-15.3); MCH 25.4 pg (25.7-33.7); MEAN PLT VOLUME 9.1 fl (7.5-11.1); PLATELET COUNT 178 K/MM3 (134-434); RBC 5.48 M/mm3 (3.60-5.2); RDW 19.9 % (11.6-15.6); WHITE BLOOD COUNT 6.6 K/mm3 (4.0-10.0)
[2018-07-13 08:29] LABS: ANION GAP 9 MMOL/L (8-16); BLOOD UREA NITROGEN 16 mg/dL (7-18); CALCIUM 8.5 mg/dL (8.5-10.1); CHLORIDE 108 mmol/L (98-107); CO2 24 mmol/L (21-32); CREATININE 1.8 mg/dL (0.55-1.3); GLUCOSE,RANDOM 86 mg/dL (74-106); MAGNESIUM 2.1 mg/dL (1.8-2.4); PHOSPHOROUS 2.8 mg/dL (2.5-4.9); POTASSIUM 3.5 mmol/L (3.5-5.1); SODIUM 141 mmol/L (136-145)
--- NOTE | 2018-07-13 08:44 | PN ---
Physical Exam: SUBJECTIVE: Patient seen and examined at bedside no acute events overnight; patient is feeling well denies any pain or burning on urination; denies CP/SOB/N /V fevres or chills OBJECTIVE: Vital Signs Period Temp Pulse Resp BP Sys/Muller Pulse Ox Last 24 Hr 98.1 F-98.5 F 80-94 18-20 122-148/47-87 95-95 GENERAL: The patient is awake, alert, and fully oriented, in no acute distress. EYES: PEERLA; EOMI; no scleral icterus NECK: no JVD; no lymphadenopathy. LUNGS: CTA B/L; no rales/rhonchi or wheezing HEART: Regular rate and rhythm, S1, S2 without murmur, rub or gallop. ABDOMEN: Soft, nontender, nondistended, normoactive bowel sounds, no guarding, no rebound, no hepatosplenomegaly, no masses. EXTREMITIES: 2+ pulses, warm, well-perfused, no edema. PSYCH: Normal mood, normal affect. SKIN: Warm, dry, normal turgor, no rashes or lesions noted Laboratory Results - last 24 hr 07/12/18 07/12/18 07/12/18 11:11 16:36 21:18 Sodium Potassium Chloride Carbon Dioxide Anion Gap BUN Creatinine Creat Clearance w eGFR POC Glucometer 172 163 142 Random Glucose Calcium Phosphorus Magnesium 07/13/18 07/13/18 05:34 06:30 Sodium 141 Potassium 3.5 Chloride 108 H Carbon Dioxide 24 Anion Gap 9 BUN 16 Creatinine 1.8 H Creat Clearance w eGFR 27.66 POC Glucometer 96 Random Glucose 86 Calcium 8.5 Phosphorus 2.8 Magnesium 2.1 Active Medications Generic Name Dose Route Start Last Admin Trade Name Freq PRN Reason Stop Dose Admin Acetaminophen 650 mg 07/10/18 23:29 07/11/18 13:14 Tylenol - PO 650 mg Q4H PRN Administration PAIN Clopidogrel Bisulfate 75 mg 07/11/18 10:00 07/12/18 09:20 Plavix - PO 75 mg DAILY MAURICIO Administration Diltiazem HCl 360 mg 07/11/18 10:00 07/12/18 09:20 Cardizem Cd - PO 360 mg DAILY MAURICIO Administration Heparin Sodium (Porcine) 5,000 unit 07/10/18 23:45 07/13/18 05:35 Heparin - SQ 5,000 unit TID MAURICIO Administration Ceftriaxone Sodium 1 gm/ 50 mls @ 100 mls/hr 07/11/18 10:00 07/12/18 09:20 Dextrose IVPB 100 mls/hr DAILY MAURICIO Administration Sodium Chloride 1,000 mls @ 100 mls/hr 07/11/18 10:30 07/13/18 05:34 Normal Saline - IV 100 mls/hr ASDIR MAURICIO Administration Insulin Aspart 1 vial 07/11/18 11:00 07/13/18 06:37 Novolog Vial Sliding Scale - SQ Not Given TIDAC [facility] Protocol Insulin Detemir 10 units 07/11/18 22:00 07/12/18 21:21 Levemir Vial SQ 10 units HS MAURICIO Administration Levothyroxine Sodium 25 mcg 07/11/18 07:00 07/13/18 06:37 Synthroid - PO 25 mcg DAILY@0700 MAURICIO Administration Montelukast Sodium 10 mg 07/11/18 22:00 07/12/18 21:21 Singulair - PO 10 mg HS MAURICIO Administration Phenazopyridine HCl 100 mg 07/11/18 10:09 07/11/18 11:48 Pyridium - PO 100 mg Q8H PRN Administration dysuria Polyethylene Glycol 17 gm 07/12/18 10:00 07/12/18 09:40 Miralax (For Daily Use) - PO 17 gm DAILY MAURICIO Administration Rosuvastatin Calcium 20 mg 07/11/18 10:00 07/12/18 09:20 Crestor - PO 20 mg DAILY MAURICIO Administration Senna/Docusate Sodium 1 tablet 07/11/18 22:00 07/12/18 21:21 Pericolace - PO 1 tablet BID MAURICIO Administration ASSESSMENT/PLAN: 73 y/o F w/PMH of IDDM, HTN, HLD, hypothyroidism presents to the ER for dysuria for the past 3 days. Failed outpatient therapy. -UTI -c/w ceftriaxone 1 g qd day 3 -cx negative -renal u/s showed no evidence of hydro -will need outpatient followup for recurrent UTI -Constipation -resolved -IDDM -BGMs, ISS ACHS -levemir 10 units ACHS -Hypothyroidism -synthroid 25 mcg qAM -CAD -c/w plavix -HTN -c/w diltiazem ER 360 mg po qd -HLD -c/w rosuvastatin 20mg po qhs -DVT ppx -Heparin sq 5000 q8h Problem List - Problems (1) Acute kidney injury Code(s): N17.9 - ACUTE KIDNEY FAILURE, UNSPECIFIED (2) Diabetes mellitus Code(s): E11.9 - TYPE 2 DIABETES MELLITUS WITHOUT COMPLICATIONS Qualifiers: Diabetes mellitus type: type 2 Diabetes mellitus intermodal customer service insulin use: with intermodal customer service use Diabetes mellitus complication status: with hyperglycemia Qualified Code(s): E11.65 - Type 2 diabetes mellitus with hyperglycemia; Z79.4 - retirement (current) use of insulin (3) Urinary tract infection Code(s): N39.0 - URINARY TRACT INFECTION, SITE NOT SPECIFIED Qualifiers: Urinary tract infection type: site unspecified Hematuria presence: with hematuria Qualified Code(s): N39.0 - Urinary tract infection, site not specified; R31.9 - Hematuria, unspecified Visit type - Emergency Visit Emergency Visit: Yes ED Registration Date: 07/10/18 Care time: The patient presented to the Emergency Department on the above date and was hospitalized for further evaluation of their emergent condition. - New Patient This patient is new to me today: No - Critical Care Critical Care patient: No
[2018-07-13] MEDS ORDERED: cefTRIAXone SODIUM 1 GM VIAL ONE (09:16)
[2018-07-13] MEDS ORDERED: ROSUVASTATIN CA 10 MG TABLET (FP) ONE (09:16)
[2018-07-13] MEDS ORDERED: DEXTROSE 5%-WATER - 50 ML IVPB ONE (09:17)
[2018-07-13] MEDS: CEFTRIAXONE 1 GM in DEXTROSE 5%-WATER - 50 ML IVPB SCH (09:18)
[2018-07-13] MEDS: CLOPIDOGREL BISULFATE 75 MG TABLET (FP) PO SCH (09:18)
[2018-07-13] MEDS: SENNOSIDES/DOCUSATE COMBO (SENNA PLUS) TABLET (UD) PO SCH ×2 (09:18→21:41)
[2018-07-13] MEDS: ROSUVASTATIN CA 20 MG TABLET (FP) PO SCH (09:19)
[2018-07-13] MEDS: POLYETHYLENE GLYCOL 3350 119 GM BTL PO SCH (09:41)
[2018-07-13] MEDS ORDERED: INSULIN (NOVOLOG) ASPART 100 UNITS/ML 10ML VIAL ONE (16:36)
[2018-07-13] MEDS ORDERED: HYDROCORTISONE 0.5% TOPICAL CREAM 30 GM TUBE TP ONE (17:45)
[2018-07-13] MEDS ORDERED: PT OWN MED DRAWER 7, Y5N ONE (18:52)
--- NOTE | 2018-07-13 19:22 | PN ---
Teaching Attending Note Name of Resident: Sade Xiao ATTENDING PHYSICIAN STATEMENT I saw and evaluated the patient. I reviewed the resident's note and discussed the case with the resident. I agree with the resident's findings and plan as documented. SUBJECTIVE: No fever or chills . No abd pain , constipation resolved OBJECTIVE: NAD, awake HEENT: MMM CV: RRR, no MRG Lungs: CTAB Abd: obese, NT, NB , Nl BS Ext: no edema or erythema Assessment/Plan: 73 y/o lady with h/o HTN, DM, HL, hypothyroidism, and recent Dx and Rx for UTI ( finished abx 3 days prior), who presented with severe dysuria and was found to have UTI and TANISHA 1-Complicated UTI/pyelo, - cont ceftriaxone. urine cx neg after being on Abx as out pt - cont IVF - cont perydium - uro f.u as out pt 2- TANISHA: due to volume depletion - cont IVF . 3- Hypokalemia: resolved 4- h/o DM : - cont levemir at HS 5- HTN: cont cardizem 6- Elevated Alk phos and ALT, improved: trend DVT px HLOC
[2018-07-13] MEDS: INSULIN (LEVEMIR) 100 UNITS/ML UNITS SQ SCH (21:39)
[2018-07-13] MEDS: MONTELUKAST NA 10 MG TABLET PO SCH (21:41)
[2018-07-14] MEDS: SODIUM CHLORIDE 1,000 ML IV SCH ×2 (00:55→11:40)
[2018-07-14 06:08] LABS: HEMATOCRIT 40.8 % (32.4-45.2); HEMOGLOBIN 13.5 GM/dL (10.7-15.3); MCH 25.4 pg (25.7-33.7); MCHC 33.1 g/dl (32.0-36.0); MEAN CELL VOLUME 76.8 fl (80-96); PLATELET COUNT 159 K/MM3 (134-434); RBC 5.31 M/mm3 (3.60-5.2); RDW 19.9 % (11.6-15.6); WHITE BLOOD COUNT 5.6 K/mm3 (4.0-10.0)
[2018-07-14] MEDS: INSULIN SLIDING SCALE (NOVOLOG) 1 VIAL SQ SCH ×2 (06:33→11:45)
[2018-07-14] MEDS: LEVOTHYROXINE NA 25 MCG TABLET (FP) PO SCH (06:34)
[2018-07-14] MEDS: HEPARIN NA (PORCINE) 5,000 UNITS/ML 1ML VIAL SQ SCH (06:34)
[2018-07-14 06:35] LABS: ANION GAP 4 MMOL/L (8-16); BLOOD UREA NITROGEN 14 mg/dL (7-18); CALCIUM 8.1 mg/dL (8.5-10.1); CHLORIDE 109 mmol/L (98-107); CO2 28 mmol/L (21-32); CREATININE 1.6 mg/dL (0.55-1.3); GLUCOSE,RANDOM 116 mg/dL (74-106); MAGNESIUM 1.9 mg/dL (1.8-2.4); PHOSPHOROUS 2.5 mg/dL (2.5-4.9); POTASSIUM 3.4 mmol/L (3.5-5.1); SODIUM 141 mmol/L (136-145)
[2018-07-14 06:36] LABS: BILIRUBIN,DIRECT 0.3 mg/dL (0.0-0.2); BILIRUBIN,TOTAL 0.5 mg/dL (0.2-1)
--- NOTE | 2018-07-14 09:28 | PN ---
Teaching Attending Note Name of Resident: Sade Xiao ATTENDING PHYSICIAN STATEMENT I saw and evaluated the patient. I reviewed the resident's note and discussed the case with the resident. I agree with the resident's findings and plan as documented. SUBJECTIVE: Patient is feeling better wants to go home. No fever or chills, comfortable. OBJECTIVE: Vital Signs Temperature 98 F 07/14/18 06:30 Pulse Rate 86 07/14/18 06:30 Respiratory Rate 20 07/14/18 06:30 Blood Pressure 157/83 07/14/18 06:30 O2 Sat by Pulse Oximetry (%) 97 07/13/18 21:55 GENERAL: The patient is awake, alert, and fully oriented, in no acute distress. EYES: PEERLA; EOMI; no scleral icterus NECK: no JVD; no lymphadenopathy. LUNGS: CTA B/L, no r/r/w HEART: Regular rate and rhythm, S1, S2 without murmur, rub or gallop. ABDOMEN: Soft, NT,ND, normoactive bowel sounds, no guarding, no rebound, no hepatosplenomegaly, no masses. EXTREMITIES: 2+ pulses, warm, well-perfused, no edema. PSYCH: Normal mood, normal affect. SKIN: Warm, dry, normal turgor, no rashes or lesions noted CBCD WBC 5.6 K/mm3 (4.0-10.0) 07/14/18 06:00 RBC 5.31 M/mm3 (3.60-5.2) H 07/14/18 06:00 Hgb 13.5 GM/dL (10.7-15.3) 07/14/18 06:00 Hct 40.8 % (32.4-45.2) 07/14/18 06:00 MCV 76.8 fl (80-96) L 07/14/18 06:00 MCHC 33.1 g/dl (32.0-36.0) 07/14/18 06:00 RDW 19.9 % (11.6-15.6) H 07/14/18 06:00 Plt Count 159 K/MM3 (134-434) 07/14/18 06:00 MPV 9.0 fl (7.5-11.1) 07/14/18 06:00 CMP Sodium 141 mmol/L (136-145) 07/14/18 06:00 Potassium 3.4 mmol/L (3.5-5.1) L 07/14/18 06:00 Chloride 109 mmol/L (98-107) H 07/14/18 06:00 Carbon Dioxide 28 mmol/L (21-32) 07/14/18 06:00 Anion Gap 4 MMOL/L (8-16) L 07/14/18 06:00 BUN 14 mg/dL (7-18) 07/14/18 06:00 Creatinine 1.6 mg/dL (0.55-1.3) H 07/14/18 06:00 Creat Clearance w eGFR 31.68 (>60) 07/14/18 06:00 Random Glucose 116 mg/dL (74-106) H 07/14/18 06:00 Calcium 8.1 mg/dL (8.5-10.1) L 07/14/18 06:00 Total Bilirubin 0.5 mg/dL (0.2-1) 07/14/18 06:00 AST 48 U/L (15-37) H 07/14/18 06:00 ALT 38 U/L (13-61) 07/14/18 06:00 Alkaline Phosphatase 134 U/L (45-117) H 07/14/18 06:00 Total Protein 6.0 g/dl (6.4-8.2) L 07/14/18 06:00 Albumin 2.0 g/dl (3.4-5.0) L 07/14/18 06:00 Current Medications Generic Name Dose Route Start Last Admin Trade Name Freq PRN Reason Stop Dose Admin Acetaminophen 650 mg 07/10/18 23:29 07/11/18 13:14 Tylenol - PO 650 mg Q4H PRN Administration PAIN Clopidogrel Bisulfate 75 mg 07/11/18 10:00 07/13/18 09:18 Plavix - PO 75 mg DAILY MAURICIO Administration Diltiazem HCl 360 mg 07/11/18 10:00 07/13/18 09:18 Cardizem Cd - PO 360 mg DAILY MAURICIO Administration Heparin Sodium (Porcine) 5,000 unit 07/10/18 23:45 07/14/18 06:34 Heparin - SQ 5,000 unit TID MAURICIO Administration Ceftriaxone Sodium 1 gm/ 50 mls @ 100 mls/hr 07/11/18 10:00 07/13/18 09:18 Dextrose IVPB 100 mls/hr DAILY MAURICIO Administration Sodium Chloride 1,000 mls @ 100 mls/hr 07/11/18 10:30 07/14/18 00:55 Normal Saline - IV 100 mls/hr ASDIR MAURICIO Administration Insulin Aspart 1 vial 07/11/18 11:00 07/14/18 06:33 Novolog Vial Sliding Scale - SQ Not Given TIDAC [facility] Protocol Insulin Detemir 10 units 07/11/18 22:00 07/13/18 21:39 Levemir Vial SQ 10 units HS MAURICIO Administration Levothyroxine Sodium 25 mcg 07/11/18 07:00 07/14/18 06:34 Synthroid - PO 25 mcg DAILY@0700 MAURICIO Administration Montelukast Sodium 10 mg 07/11/18 22:00 07/13/18 21:41 Singulair - PO 10 mg HS MAURICIO Administration Phenazopyridine HCl 100 mg 07/11/18 10:09 07/11/18 11:48 Pyridium - PO 100 mg Q8H PRN Administration dysuria Polyethylene Glycol 17 gm 07/12/18 10:00 07/13/18 09:41 Miralax (For Daily Use) - PO 17 gm DAILY MAURICIO Administration Rosuvastatin Calcium 20 mg 07/11/18 10:00 07/13/18 09:19 Crestor - PO 20 mg DAILY MAURICIO Administration Senna/Docusate Sodium 1 tablet 07/11/18 22:00 07/13/18 21:41 Pericolace - PO 1 tablet BID MAURICIO Administration Home Medications Medication Instructions Recorded Danazol [Danocrine -] 200 mg PO BID #0 capsule 09/21/12 Levothyroxine [Synthroid -] 25 mcg PO DAILY #0 tablet 09/21/12 Montelukast Na [Singulair -] 10 mg PO HS #0 tablet 09/21/12 Raloxifene HCl [Evista] 60 mg PO DAILY #0 tablet 09/21/12 Tiotropium [place] [Spiriva] 1 inh IH DAILY #0 inh 09/21/12 Diltiazem HCl [Diltiazem ER] 1 mg PO DAILY 04/04/16 Clopidogrel Bisulfate [Plavix] 75 mg PO DAILY 07/10/18 Dapagliflozin Propanediol [Farxiga] 10 mg PO DAILY 07/10/18 Ergocalciferol (Vitamin D2) 50,000 unit PO WEEKLY 07/10/18 [Vitamin D2] Insulin Glargine,Hum.rec.anlog 25 units SQ BID 07/10/18 [Lantus Solostar PEN -] Insulin NPL/Insulin Lispro 25 unit SQ BID 07/10/18 [Humalog Mix 50-50 Pen] [place]-3 Fatty Acids/Fish Oil [Fish 1 each PO DAILY 07/10/18 Oil 1,000 mg Capsule] Omeprazole [Prilosec (RX)] 40 mg PO DAILY 07/10/18 Pioglitazone HCl 45 mg PO DAILY 07/10/18 Rosuvastatin [Crestor -] 20 mg PO DAILY 07/10/18 Microbiology 07/10/18 19:25 Urine - Urine Clean Catch Urine Culture - Final NO GROWTH OBTAINED ASSESSMENT AND PLAN: Patient is a 73yo lady with PMHx of HTN, DM, HLD, hypothyroidism, and recent Rx for UTI ( finished abx 3 days prior), who presented with severe dysuria and was found to have UTI and TANISHA. # Acute complicated UTI with pyelonephritis with recent treatment as an outpatient with oral antibiotic. s/p IV Rocephin will discharge the patient home on oral antibiotics to complete total of 10 days, will continue with Ceftin 250mg po BID x 5 more days for total of 10 days. Urine cx neg after being on Abx as out pt. Follow with urologist as an outpatient. # Acute on chronic TANISHA follow with Dr. Lara as an outpatient for further w/ u , s/p IVF #Hx of T2DM continue: levemir at HS # HTN: cont cardizem # Elevated Alk phos and ALT, improved Willd discharge the patient home.
[2018-07-14] MEDS ORDERED: cefTRIAXone SODIUM 1 GM VIAL ONE (11:28)
[2018-07-14] MEDS ORDERED: DEXTROSE 5%-WATER - 50 ML IVPB ONE (11:28)
[2018-07-14] MEDS: ACETAMINOPHEN 325 MG TABLET (FP) PO PRN (11:34)
[2018-07-14] MEDS: CLOPIDOGREL BISULFATE 75 MG TABLET (FP) PO SCH (11:34)
[2018-07-14] MEDS: CEFTRIAXONE 1 GM in DEXTROSE 5%-WATER - 50 ML IVPB SCH (11:35)
[2018-07-14] MEDS: SENNOSIDES/DOCUSATE COMBO (SENNA PLUS) TABLET (UD) PO SCH (11:37)
[2018-07-14] MEDS ORDERED: ROSUVASTATIN CA 10 MG TABLET (FP) ONE (11:38)
[2018-07-14] MEDS: ROSUVASTATIN CA 20 MG TABLET (FP) PO SCH (11:40)
[2018-07-14] MEDS: POLYETHYLENE GLYCOL 3350 119 GM BTL PO SCH (11:44)
[2018-07-14 12:01] VITALS: BP 153/73; PULSE 91; TEMP 97.6
--- NOTE | 2018-07-14 14:23 | DS ---
Physical Exam: SUBJECTIVE: Patient seen and examined OBJECTIVE: Vital Signs Period Temp Pulse Resp BP Sys/Muller Pulse Ox Last 24 Hr 97.6 F-98.1 F 82-95 18-20 130-157/73-83 97 PHYSICAL EXAM GENERAL: The patient is awake, alert, and fully oriented, in no acute distress. HEAD: Normal with no signs of trauma. EYES: PERRL, extraocular movements intact, sclera anicteric, conjunctiva clear. ENT: Ears normal, nares patent, oropharynx clear without exudates, moist mucous membranes. NECK: Trachea midline, full range of motion, supple. LUNGS: Breath sounds equal, clear to auscultation bilaterally, no wheezes, no crackles, no accessory muscle use. HEART: Regular rate and rhythm, S1, S2 without murmur, rub or gallop. ABDOMEN: Soft, nontender, nondistended, normoactive bowel sounds, no guarding, no rebound, no hepatosplenomegaly, no masses. EXTREMITIES: 2+ pulses, warm, well-perfused, no edema. NEUROLOGICAL: Cranial nerves II through XII grossly intact. Normal speech, gait not observed. PSYCH: Normal mood, normal affect. SKIN: Warm, dry, normal turgor, no rashes or lesions noted. LABS Laboratory Results - last 24 hr 07/13/18 07/13/18 07/14/18 16:34 21:31 06:00 WBC 5.6 RBC 5.31 H Hgb 13.5 Hct 40.8 MCV 76.8 L MCH 25.4 L MCHC 33.1 RDW 19.9 H Plt Count 159 MPV 9.0 Sodium Potassium Chloride Carbon Dioxide Anion Gap BUN Creatinine Creat Clearance w eGFR POC Glucometer 218 179 Random Glucose Calcium Phosphorus Magnesium Total Bilirubin Direct Bilirubin AST ALT Alkaline Phosphatase Total Protein Albumin 07/14/18 07/14/18 07/14/18 06:00 06:00 06:32 WBC RBC Hgb Hct MCV MCH MCHC RDW Plt Count MPV Sodium 141 Potassium 3.4 L Chloride 109 H Carbon Dioxide 28 Anion Gap 4 L BUN 14 Creatinine 1.6 H Creat Clearance w eGFR 31.68 POC Glucometer 101 Random Glucose 116 H Calcium 8.1 L Phosphorus 2.5 Magnesium 1.9 Total Bilirubin 0.5 Direct Bilirubin 0.3 H AST 48 H ALT 38 Alkaline Phosphatase 134 H Total Protein 6.0 L Albumin 2.0 L 02/27/19 11:43 WBC RBC Hgb Hct MCV MCH MCHC RDW Plt Count MPV Sodium Potassium Chloride Carbon Dioxide Anion Gap BUN Creatinine Creat Clearance w eGFR POC Glucometer 190 Random Glucose Calcium Phosphorus Magnesium Total Bilirubin Direct Bilirubin AST ALT Alkaline Phosphatase Total Protein Albumin HOSPITAL COURSE: Date of Admission:07/10/18 patient with PMH of HTN, DM< HLD, hypothyroidism, CKD presented to the ED with complaints of dysuria for the past 3 days before admission. of note, patient was recently on antibiotics for a UTI (was on levaquin and cipro) with failed management so she came to the ED. patient was noted to have a positve u/a with leuk esterase and 42 WBC present. patient had a renal ultrasound done with no evidence of hydronephrosis. she was started on [facility] patient was found to have elevated LFTS and alk phos- with unclear reason. we trended them daily and they downtrended- patient was discharged with another 5 days of antibiotics (ceftin 250 BID) to complete a toal of 10 days. she was also discharged with nephrology follow up, since she had CKD but has not seen a [facility] doctor in a while. in addition, she was also given referreral for a urologist as she has now had recurrent UTIS. she was stable to be d/c;d home. Date of Discharge: 07/14/18 Minutes to complete discharge: 39 Discharge Summary Reason For Visit: ACUTE KIDNEY INJURY/UTI Current Active Problems Acute kidney injury (Acute) Diabetes mellitus (Chronic) Condition: Stable - Instructions Diet, Activity, Other Instructions: You presented to the emergency room with complaints of pain on urination and were found to have a urinary tract infection for which you were treated with IV antibiotics. Please resume all of your home medications in addition: Please take the antibiotic Ceftin 250mg twice a day for the next 5 days in addition, please take the medication Bacid twice a day for the next 30 days as it helps with the kwabena of your stomach Please follow up with primary care physician within one week We are referring you to a urologist, Dr. Johnson since you have had multiple urinary tract infections, please see him within one week We are also referring you to a environmental services tech, Dr. Sun, as one of your kidney function test was elevated *if you begin to experience any chest pains, shortness of breath, nausea, vomiting please return to the emergency room immediately Referrals: Marion Machuca MD [Primary Care Provider] - 1 Week Ruth Ann Burns MD [Staff Physician] - 1 Week Dai Johnson MD [Staff Physician] - 1 Week Disposition: HOME - Home Medications Comprehensive Discharge Medication List: Ambulatory Orders Danazol [Danocrine -] 200 mg PO BID #0 capsule 09/21/12 Levothyroxine [Synthroid -] 25 mcg PO DAILY #0 tablet 09/21/12 Montelukast Na [Singulair -] 10 mg PO HS #0 tablet 09/21/12 Raloxifene HCl [Evista] 60 mg PO DAILY #0 tablet 09/21/12 Tiotropium [place] [Spiriva] 1 inh IH DAILY #0 inh 09/21/12 Diltiazem HCl [Diltiazem 24Hr ER] 1 mg PO DAILY 04/04/16 Clopidogrel Bisulfate [Plavix] 75 mg PO DAILY 07/10/18 Dapagliflozin Propanediol [Farxiga] 10 mg PO DAILY 07/10/18 Ergocalciferol (Vitamin D2) [Vitamin D2] 50,000 unit PO WEEKLY 07/10/18 Insulin Glargine,Hum.rec.anlog [Lantus Solostar PEN -] 25 units SQ BID 07/10/18 Insulin NPL/Insulin Lispro [Humalog Mix 50-50 Pen] 25 unit SQ BID 07/10/18 [place]-3 Fatty Acids/Fish Oil [Fish Oil 1,000 mg Capsule] 1 each PO DAILY Omeprazole [Prilosec (RX)] 40 mg PO DAILY 07/10/18 Pioglitazone HCl 45 mg PO DAILY 07/10/18 Rosuvastatin [Crestor -] 20 mg PO DAILY 07/10/18 Cefuroxime Axetil [Ceftin -] 250 mg PO BID #10 tablet 07/14/18 Lactobacillus Acidophilus [Bacid -] 1 each PO BID #10 tab 07/14/18 Problem List - Problems (1) Acute kidney injury Code(s): N17.9 - ACUTE KIDNEY FAILURE, UNSPECIFIED (2) Diabetes mellitus Code(s): E11.9 - TYPE 2 DIABETES MELLITUS WITHOUT COMPLICATIONS Qualifiers: Diabetes mellitus type: type 2 Diabetes mellitus intermediate insulin use: with intermediate use Diabetes mellitus complication status: with hyperglycemia Qualified Code(s): E11.65 - Type 2 diabetes mellitus with hyperglycemia; Z79.4 - intermediate (current) use of insulin (3) Urinary tract infection Code(s): N39.0 - URINARY TRACT INFECTION, SITE NOT SPECIFIED Qualifiers: Urinary tract infection type: site unspecified Hematuria presence: with hematuria Qualified Code(s): N39.0 - Urinary tract infection, site not specified; R31.9 - Hematuria, unspecified This patient is new to me today: No Emergency Visit: Yes ED Registration Date: 07/10/18 Care time: The patient presented to the Emergency Department on the above date and was hospitalized for further evaluation of their emergent condition. Critical Care patient: No - Discharge Referral Referred to [facility] No
[2018-07-14] MEDS ORDERED: POTASSIUM CHLORIDE TABS 20 MEQ TABLET.ER (FP) PO SCH (22:00)
== END 2018-07-14 14:30 | disposition home or self-care (01) | DRG 683 ==
LOC: JER 18:06 → JERBED 21:21 → J8W 07-11 02:27
PROVIDERS: ADMIT Internal Medicine; ATTEND Internal Medicine
DX: N17.9 Acute kidney failure, unspecified (principal); N39.0 Urinary tract infection, site not specified; E11.65 Type 2 diabetes mellitus with hyperglycemia; I25.10 Atherosclerotic heart disease of native coronary artery without angina pectoris; E87.6 Hypokalemia; I12.9 Hypertensive chronic kidney disease with stage 1 through stage 4 chronic kidney disease, or unspecified chronic kidney disease; E11.22 Type 2 diabetes mellitus with diabetic chronic kidney disease; N18.9 Chronic kidney disease, unspecified; E78.5 Hyperlipidemia, unspecified; E03.9 Hypothyroidism, unspecified; E86.9 Volume depletion, unspecified; K59.00 Constipation, unspecified; R74.0 Nonspecific elevation of levels of transaminase and lactic acid dehydrogenase [LDH]; D72.829 Elevated white blood cell count, unspecified; E66.9 Obesity, unspecified; Z68.38 Body mass index [BMI] 38.0-38.9, adult; R31.9 Hematuria, unspecified; E86.0 Dehydration
CPT/HCPCS: 36415; 76775-TC; 80048; 80053; 80076; 81003; 81015; 82962; 82977; 83735; 84100; 85025; 85027; 87086; 90688; 93005; 93010; 99284-25; G0008; J1644; J7030

== ENCOUNTER 2018-12-10 15:05 | Emergency (ER) | payer OTHER ==
[2018-12-10 15:11] VITALS: BMI 39.0
--- NOTE | 2018-12-10 15:12 | PDOC ---
Rapid Medical Evaluation Time Seen by Provider: 12/10/18 15:07 Medical Evaluation: Allergies Allergy/AdvReac Type Severity Reaction Status Date / Time aspirin AdvReac Unknown Verified 07/10/18 18:12 12/10/18 15:07 I have performed a brief in-person evaluation of this patient. The patient presents with a chief complaint of: vaginal bleeding since this am, used 3 pads today. No pain. Was hospitalized foe UTI in June. Denies burning /pain on urination, no frequency/urgency. (+)h/o CKD, HTN, DM, HLD I have ordered the following: CBC, CMP, UA, UCx, type and screen The patient will proceed to the ED for further evaluation. 12/10/18 15:11 Discharge Disposition - Diagnosis Vaginal bleeding - Referrals - Patient Instructions - Post Discharge Activity
[2018-12-10 17:13] LABS: BASO % 0.3 % (0-2.0); EOS % 1.3 % (0-4.5); HEMATOCRIT 43.1 % (32.4-45.2); LYMPH % 28.2 % (8-40); MCH 26.4 pg (25.7-33.7); MCHC 32.5 g/dl (32.0-36.0); MEAN CELL VOLUME 81.2 fl (80-96); MEAN PLT VOLUME 9.4 fl (7.5-11.1); NEUT % 61.2 % (42.8-82.8); PLATELET COUNT 146 K/MM3 (134-434); RBC 5.31 M/mm3 (3.60-5.2); RDW 18.7 % (11.6-15.6); WHITE BLOOD COUNT 7.3 K/mm3 (4.0-10.0)
[2018-12-10 17:14] LABS: EPI CELLS 3.3 /HPF (0-5/HPF); HYALINE CASTS 6 /lpf (0-8); PH,URINE 5.5 (5.0-8.0); URINE APPEARANCE CLEAR; URINE BACTERIA 3.7 /hpf (NEGATIVE); URINE BILIRUBIN NEGATIVE (NEGATIVE); URINE COLOR ORANGE; URINE GLUCOSE (UA) 3+ (NEGATIVE); URINE KETONE NEGATIVE (NEGATIVE); URINE LEUK ESTERASE 1+ (NEGATIVE); URINE NITRITE NEGATIVE (NEGATIVE); URINE PROTEIN 1+ (NEGATIVE); URINE RBC 1261 /hpf (0-4); URINE UROBILINOGEN 0.2 mg/dL (0.2-1.0); URINE WBC 21 /hpf (0-5)
[2018-12-10 17:33] LABS: INR 1.03 (0.83-1.09); PROTHROMBIN TIME (PATIENT) 12.1 SEC (9.7-13.0)
[2018-12-10 17:41] LABS: ALBUMIN 2.7 g/dl (3.4-5.0); BILIRUBIN,TOTAL 0.9 mg/dL (0.2-1); BLOOD UREA NITROGEN 23.6 mg/dL (7-18); CALCIUM 8.8 mg/dL (8.5-10.1); CREATININE 1.8 mg/dL (0.55-1.3); POTASSIUM 5.4 mmol/L (3.5-5.1); TOT PROT 6.9 g/dl (6.4-8.2)
--- NOTE | 2018-12-10 17:58 | PDOC ---
History of Present Illness - General Chief Complaint: Vaginal Bleeding Stated Complaint: VAGINAL BLEEDING Time Seen by Provider: 12/10/18 15:07 - History of Present Illness Initial Comments: Meenu Jorge is a 73yo woman with a PMH of HTN, DM, HLD, hypothyroidism, CKD who presents with vaginal bleeding today. She reports that the bleeding is similar to her period, but she has been post-menopauseal for nearly 20 years. She believes that the bleeding is vaginal rather than from the urethra. Ms Jorge reports a similar episode 3-4 years ago, which she reports was due to thrombocytopenia. She was also seen by a lube man and had a "scope" to evaluate for cancer, but she states that she was told that everything was normal. She denies any other recent symptoms including abdominal pain, dysuria, hematuria, or vaginal pain. Past History - Past Medical History Allergies/Adverse Reactions: Allergies Allergy/AdvReac Type Severity Reaction Status Date / Time aspirin AdvReac Unknown Verified 12/10/18 15:09 Home Medications: Ambulatory Orders Danazol [Danocrine -] 200 mg PO BID #0 capsule 09/21/12 Levothyroxine [Synthroid -] 25 mcg PO DAILY #0 tablet 09/21/12 Montelukast Na [Singulair -] 10 mg PO HS #0 tablet 09/21/12 Raloxifene HCl [Evista] 60 mg PO DAILY #0 tablet 09/21/12 Tiotropium [place] [Spiriva] 1 inh IH DAILY #0 inh 09/21/12 Diltiazem HCl [Diltiazem 24Hr ER] 1 mg PO DAILY 04/04/16 Clopidogrel Bisulfate [Plavix] 75 mg PO DAILY 07/10/18 Dapagliflozin Propanediol [Farxiga] 10 mg PO DAILY 07/10/18 Ergocalciferol (Vitamin D2) [Vitamin D2] 50,000 unit PO WEEKLY 07/10/18 Insulin Glargine,Hum.rec.anlog [Lantus Solostar PEN -] 25 units SQ BID 07/10/18 Insulin NPL/Insulin Lispro [Humalog Mix 50-50 Pen] 25 unit SQ BID 07/10/18 [place]-3 Fatty Acids/Fish Oil [Fish Oil 1,000 mg Capsule] 1 each PO DAILY Omeprazole [Prilosec (RX)] 40 mg PO DAILY 07/10/18 Pioglitazone HCl 45 mg PO DAILY 07/10/18 Rosuvastatin [Crestor -] 20 mg PO DAILY 07/10/18 Cefuroxime Axetil [Ceftin -] 250 mg PO BID #10 tablet 07/14/18 Lactobacillus Acidophilus [Bacid -] 1 each PO BID #10 tab 07/14/18 Potassium Chloride [K-Dur -] 20 meq PO BID #5 tablet.er 07/14/18 Anemia: No Asthma: Yes Cancer: No Cardiac Disorders: No CVA: No COPD: No CHF: No Dementia: No Diabetes: Yes GI Disorders: No Disorders: No HTN: Yes Hypercholesterolemia: Yes Liver Disease: No Seizures: No Thyroid Disease: Yes - Surgical History Abdominal Surgery: No Appendectomy: No Cardiac Surgery: No Cholecystectomy: Yes Lung Surgery: No Neurologic Surgery: No Orthopedic Surgery: No - Suicide/Smoking/Psychosocial Hx Smoking Status: No Smoking History: Never smoked Have you smoked in the past 12 months: No Number of Cigarettes Smoked Daily: 0 Hx Alcohol Use: No Drug/Substance Use Hx: No Substance Use Type: None Hx Substance Use Treatment: No Review of Systems - Review of Systems Comments:: General: No fevers, no chills, no weight or appetite change, no malaise HEENT: No changes in vision, no changes in hearing, no congestion, no sore throat CV: No chest pain, no palpitations, no LE edema Pulm: No SOB, no cough, no wheezing GI: No nausea or vomiting, no change in bowel habits, no melena : See HPI Musc: No back pain, no joint swelling, no recent injury Skin: No rash, no lesions, no erythema Endo: No excessive thirst, no heat/cold intolerance Heme: No unusual bruising or bleeding, no swollen glands Neuro: No syncope, no numbness/tingling, no focal weakness Vasc: No claudication Psych: No recent change in mood, no SI or HI *Physical Exam - Vital Signs Last Vital Signs Temp Pulse Resp BP Pulse Ox 98.8 F 83 18 127/75 96 12/10/18 15:09 12/10/18 15:09 12/10/18 15:09 12/10/18 15:09 12/10/18 15:09 - Physical Exam Comments: General: Comfortable, no acute distress HEENT: PERRL, EOMI, MMM, voice normal, normal neck ROM, no LAD Cards: RRR, no murmur appreciated Pulm: Comfortable on room air, clear to auscultation bilaterally Abd: Soft, nontender, nondistended : Normal external genitalia, fungal infection in skin folds. Dark bleeding in vaginal canal. Os not visualized due to excess tissue. Ext: Atraumatic. No LE edema. Skin: Normal color, no rashes or lesions Neuro: A&Ox3, CN grossly intact, normal speech, motor/sensory grossly intact and symmetric Psych: Mood appropriate to situation ED Treatment Course - LABORATORY CBC & Chemistry Diagram: 12/10/18 16:44 12/10/18 16:42 - ADDITIONAL ORDERS Additional order review: Laboratory Results 12/10/18 12/10/18 12/10/18 16:44 16:44 16:42 PT with INR 12.10 INR 1.03 Sodium 138 Potassium 5.4 H Chloride 105 Carbon Dioxide 26 Anion Gap 7 L BUN 23.6 H Creatinine 1.8 H Est GFR (CKD-EPI)AfAm 32.03 Est GFR (CKD-EPI)NonAf 27.63 Random Glucose 317 H* Calcium 8.8 Total Bilirubin 0.9 AST 79 H ALT 99 H Alkaline Phosphatase 227 H Total Protein 6.9 Albumin 2.7 L Urine Color [place] Urine Appearance Clear Urine pH 5.5 Ur Specific [place] 1.018 Urine Protein 1+ H Urine Glucose (UA) 3+ H Urine Ketones Negative Urine Blood 3+ H Urine Nitrite Negative Urine Bilirubin Negative Urine Urobilinogen 0.2 Ur Leukocyte Esterase 1+ H Urine WBC (Auto) 21 Urine RBC (Auto) 1261 Urine Casts (Auto) 6 U Epithel Cells (Auto) 3.3 Urine Bacteria (Auto) 3.7 12/10/18 16:44 RBC 5.31 H MCV 81.2 MCHC 32.5 RDW 18.7 H MPV 9.4 Neutrophils % 61.2 Lymphocytes % 28.2 Monocytes % 9.0 Eosinophils % 1.3 Basophils % 0.3 Medical Decision Making - Medical Decision Making 12/10/18 17:58 Meenu Jorge is a 73yo woman with a PMH of HTN, DM, HLD, hypothyroidism, CKD who presents with vaginal bleeding today. She reports a similar episode 3-4 years ago, which she reports was due to thrombocytopenia. At that time, she had a negative gyne workup for uterine cancer. - Vaginal bleeding in a post-menopausal woman is concerning for cancer, despite negative workup previously. - CBC, CMP, coags ordered in RME - Will need pelvic exam to evaluate for bleeding. Pt had recent UTI w/ hematuria ; possible that bleeding is actually overflow incontinence w/ gross hematuria 12/10/18 19:32 - Pelvic exam completed. Blood in vaginal canal - Labs reviewed, no concerning abnormalities. Platelet count normal - Transvaginal US for evaluation - Will need gyne consult following US - Sign out given to Dr Matthew for remainder of her ED care. Discussed with Dr Jemal Metcalf PGY2 *DC/Admit/Observation/Transfer Diagnosis at time of Disposition: Vaginal bleeding - Referrals - Patient Instructions - Post Discharge Activity
--- NOTE | 2018-12-10 19:19 | PDOC ---
History of Present Illness - General Chief Complaint: Vaginal Bleeding Stated Complaint: VAGINAL BLEEDING Time Seen by Provider: 12/10/18 15:07 Past History - Past Medical History Allergies/Adverse Reactions: Allergies Allergy/AdvReac Type Severity Reaction Status Date / Time aspirin AdvReac Unknown Verified 12/10/18 15:09 Home Medications: Ambulatory Orders Danazol [Danocrine -] 200 mg PO BID #0 capsule 09/21/12 Levothyroxine [Synthroid -] 25 mcg PO DAILY #0 tablet 09/21/12 Montelukast Na [Singulair -] 10 mg PO HS #0 tablet 09/21/12 Raloxifene HCl [Evista] 60 mg PO DAILY #0 tablet 09/21/12 Tiotropium [place] [Spiriva] 1 inh IH DAILY #0 inh 09/21/12 Diltiazem HCl [Diltiazem 24Hr ER] 1 mg PO DAILY 04/04/16 Clopidogrel Bisulfate [Plavix] 75 mg PO DAILY 07/10/18 Dapagliflozin Propanediol [Farxiga] 10 mg PO DAILY 07/10/18 Ergocalciferol (Vitamin D2) [Vitamin D2] 50,000 unit PO WEEKLY 07/10/18 Insulin Glargine,Hum.rec.anlog [Lantus Solostar PEN -] 25 units SQ BID 07/10/18 Insulin NPL/Insulin Lispro [Humalog Mix 50-50 Pen] 25 unit SQ BID 07/10/18 [place]-3 Fatty Acids/Fish Oil [Fish Oil 1,000 mg Capsule] 1 each PO DAILY Omeprazole [Prilosec (RX)] 40 mg PO DAILY 07/10/18 Pioglitazone HCl 45 mg PO DAILY 07/10/18 Rosuvastatin [Crestor -] 20 mg PO DAILY 07/10/18 Cefuroxime Axetil [Ceftin -] 250 mg PO BID #10 tablet 07/14/18 Lactobacillus Acidophilus [Bacid -] 1 each PO BID #10 tab 07/14/18 Potassium Chloride [K-Dur -] 20 meq PO BID #5 tablet.er 07/14/18 Anemia: No Asthma: Yes Cancer: No Cardiac Disorders: No CVA: No COPD: No CHF: No Dementia: No Diabetes: Yes GI Disorders: No Disorders: No HTN: Yes Hypercholesterolemia: Yes Liver Disease: No Seizures: No Thyroid Disease: Yes - Surgical History Abdominal Surgery: No Appendectomy: No Cardiac Surgery: No Cholecystectomy: Yes Lung Surgery: No Neurologic Surgery: No Orthopedic Surgery: No - Suicide/Smoking/Psychosocial Hx Smoking Status: No Smoking History: Never smoked Have you smoked in the past 12 months: No Number of Cigarettes Smoked Daily: 0 Hx Alcohol Use: No Drug/Substance Use Hx: No Substance Use Type: None Hx Substance Use Treatment: No *Physical Exam - Vital Signs Last Vital Signs Temp Pulse Resp BP Pulse Ox 98.8 F 83 18 127/75 96 12/10/18 15:09 12/10/18 15:09 12/10/18 15:09 12/10/18 15:09 12/10/18 15:09 ED Treatment Course - LABORATORY CBC & Chemistry Diagram: 12/10/18 16:44 12/10/18 16:42 - ADDITIONAL ORDERS Additional order review: Laboratory Results 12/10/18 12/10/18 12/10/18 16:44 16:44 16:44 PT with INR 12.10 INR 1.03 Sodium Potassium Chloride Carbon Dioxide Anion Gap BUN Creatinine Est GFR (CKD-EPI)AfAm Est GFR (CKD-EPI)NonAf Random Glucose Calcium Total Bilirubin AST ALT Alkaline Phosphatase Total Protein Albumin Urine Color [place] Urine Appearance Clear Urine pH 5.5 Ur Specific [place] 1.018 Urine Protein 1+ H Urine Glucose (UA) 3+ H Urine Ketones Negative Urine Blood 3+ H Urine Nitrite Negative Urine Bilirubin Negative Urine Urobilinogen 0.2 Ur Leukocyte Esterase 1+ H Urine WBC (Auto) 21 Urine RBC (Auto) 1261 Urine Casts (Auto) 6 U Epithel Cells (Auto) 3.3 Urine Bacteria (Auto) 3.7 Blood Type O POSITIVE Antibody Screen Negative 12/10/18 16:42 PT with INR INR Sodium 138 Potassium 5.4 H Chloride 105 Carbon Dioxide 26 Anion Gap 7 L BUN 23.6 H Creatinine 1.8 H Est GFR (CKD-EPI)AfAm 32.03 Est GFR (CKD-EPI)NonAf 27.63 Random Glucose 317 H* Calcium 8.8 Total Bilirubin 0.9 AST 79 H ALT 99 H Alkaline Phosphatase 227 H Total Protein 6.9 Albumin 2.7 L Urine Color Urine Appearance Urine pH Ur Specific [place] Urine Protein Urine Glucose (UA) Urine Ketones Urine Blood Urine Nitrite Urine Bilirubin Urine Urobilinogen Ur Leukocyte Esterase Urine WBC (Auto) Urine RBC (Auto) Urine Casts (Auto) U Epithel Cells (Auto) Urine Bacteria (Auto) Blood Type Antibody Screen 12/10/18 16:44 RBC 5.31 H MCV 81.2 MCHC 32.5 RDW 18.7 H MPV 9.4 Neutrophils % 61.2 Lymphocytes % 28.2 Monocytes % 9.0 Eosinophils % 1.3 Basophils % 0.3 Medical Decision Making - Medical Decision Making 12/10/18 19:19 Gross blood on pelvic exam Normal blood Pending TVUS *DC/Admit/Observation/Transfer Diagnosis at time of Disposition: Vaginal bleeding - Referrals - Patient Instructions - Post Discharge Activity
--- NOTE | 2018-12-10 19:20 | PDOC ---
*Physical Exam - Vital Signs Last Vital Signs Temp Pulse Resp BP Pulse Ox 98.8 F 83 18 127/75 96 12/10/18 15:09 12/10/18 15:09 12/10/18 15:09 12/10/18 15:09 12/10/18 15:09 <Sherine Joaquin - Last Filed: 12/10/18 20:47> - Vital Signs Last Vital Signs Temp Pulse Resp BP Pulse Ox 98.8 F 83 18 127/75 96 12/10/18 15:09 12/10/18 15:09 12/10/18 15:09 12/10/18 15:09 12/10/18 15:09 <Aung Guzman - Last Filed: 12/11/18 06:10> ED Treatment Course - LABORATORY CBC & Chemistry Diagram: 12/10/18 16:44 12/10/18 16:42 - ADDITIONAL ORDERS Additional order review: Laboratory Results 12/10/18 12/10/18 12/10/18 16:44 16:44 16:44 PT with INR 12.10 INR 1.03 Sodium Potassium Chloride Carbon Dioxide Anion Gap BUN Creatinine Est GFR (CKD-EPI)AfAm Est GFR (CKD-EPI)NonAf Random Glucose Calcium Total Bilirubin AST ALT Alkaline Phosphatase Total Protein Albumin Urine Color [place] Urine Appearance Clear Urine pH 5.5 Ur Specific [place] 1.018 Urine Protein 1+ H Urine Glucose (UA) 3+ H Urine Ketones Negative Urine Blood 3+ H Urine Nitrite Negative Urine Bilirubin Negative Urine Urobilinogen 0.2 Ur Leukocyte Esterase 1+ H Urine WBC (Auto) 21 Urine RBC (Auto) 1261 Urine Casts (Auto) 6 U Epithel Cells (Auto) 3.3 Urine Bacteria (Auto) 3.7 Blood Type O POSITIVE Antibody Screen Negative 12/10/18 16:42 PT with INR INR Sodium 138 Potassium 5.4 H Chloride 105 Carbon Dioxide 26 Anion Gap 7 L BUN 23.6 H Creatinine 1.8 H Est GFR (CKD-EPI)AfAm 32.03 Est GFR (CKD-EPI)NonAf 27.63 Random Glucose 317 H* Calcium 8.8 Total Bilirubin 0.9 AST 79 H ALT 99 H Alkaline Phosphatase 227 H Total Protein 6.9 Albumin 2.7 L Urine Color Urine Appearance Urine pH Ur Specific [place] Urine Protein Urine Glucose (UA) Urine Ketones Urine Blood Urine Nitrite Urine Bilirubin Urine Urobilinogen Ur Leukocyte Esterase Urine WBC (Auto) Urine RBC (Auto) Urine Casts (Auto) U Epithel Cells (Auto) Urine Bacteria (Auto) Blood Type Antibody Screen 12/10/18 16:44 RBC 5.31 H MCV 81.2 MCHC 32.5 RDW 18.7 H MPV 9.4 Neutrophils % 61.2 Lymphocytes % 28.2 Monocytes % 9.0 Eosinophils % 1.3 Basophils % 0.3 <Sherine Joaquin - Last Filed: 12/10/18 20:47> - LABORATORY CBC & Chemistry Diagram: 12/10/18 16:44 12/10/18 16:42 - ADDITIONAL ORDERS Additional order review: Laboratory Results 12/10/18 12/10/18 12/10/18 16:44 16:44 16:44 PT with INR 12.10 INR 1.03 Sodium Potassium Chloride Carbon Dioxide Anion Gap BUN Creatinine Est GFR (CKD-EPI)AfAm Est GFR (CKD-EPI)NonAf Random Glucose Calcium Total Bilirubin AST ALT Alkaline Phosphatase Total Protein Albumin Urine Color [place] Urine Appearance Clear Urine pH 5.5 Ur Specific [place] 1.018 Urine Protein 1+ H Urine Glucose (UA) 3+ H Urine Ketones Negative Urine Blood 3+ H Urine Nitrite Negative Urine Bilirubin Negative Urine Urobilinogen 0.2 Ur Leukocyte Esterase 1+ H Urine WBC (Auto) 21 Urine RBC (Auto) 1261 Urine Casts (Auto) 6 U Epithel Cells (Auto) 3.3 Urine Bacteria (Auto) 3.7 Blood Type O POSITIVE Antibody Screen Negative 12/10/18 16:42 PT with INR INR Sodium 138 Potassium 5.4 H Chloride 105 Carbon Dioxide 26 Anion Gap 7 L BUN 23.6 H Creatinine 1.8 H Est GFR (CKD-EPI)AfAm 32.03 Est GFR (CKD-EPI)NonAf 27.63 Random Glucose 317 H* Calcium 8.8 Total Bilirubin 0.9 AST 79 H ALT 99 H Alkaline Phosphatase 227 H Total Protein 6.9 Albumin 2.7 L Urine Color Urine Appearance Urine pH Ur Specific [place] Urine Protein Urine Glucose (UA) Urine Ketones Urine Blood Urine Nitrite Urine Bilirubin Urine Urobilinogen Ur Leukocyte Esterase Urine WBC (Auto) Urine RBC (Auto) Urine Casts (Auto) U Epithel Cells (Auto) Urine Bacteria (Auto) Blood Type Antibody Screen 12/10/18 16:44 RBC 5.31 H MCV 81.2 MCHC 32.5 RDW 18.7 H MPV 9.4 Neutrophils % 61.2 Lymphocytes % 28.2 Monocytes % 9.0 Eosinophils % 1.3 Basophils % 0.3 <Aung Guzman - Last Filed: 12/11/18 06:10> Medical Decision Making - Medical Decision Making 12/10/18 19:20 Cr 1.8 BG 320- given insulin gross blood on pelvic exam pending TVUS Meenu Jorge is a 73yo woman with a PMH of HTN, DM, HLD, hypothyroidism, CKD who presents with vaginal bleeding today. Given insulin for BG 320, noted Cr 1.8 baseline, gross blood on pelvic exam. TVUS unchanged since previous study with stable leiomyoma. D/c home with obgyn f/u <Aung Guzman - Last Filed: 12/11/18 06:10> *DC/Admit/Observation/Transfer - Discharge Dispostion Decision to Admit order: No <Sherine Joaquin - Last Filed: 12/10/18 20:47> <Aung Guzman - Last Filed: 12/11/18 06:10> Diagnosis at time of Disposition: Vaginal bleeding, Leiomyoma of body of uterus - Discharge Dispostion Disposition: HOME Condition at time of disposition: Stable - Referrals Referrals: Rene Zayas MD [Staff Physician] - - Patient Instructions Printed Discharge Instructions: DI for Vaginal Bleeding, Postmenopausal Bleeding
[2018-12-10] MEDS ORDERED: INSULIN REGULAR HUMAN 100 UNITS/ML *VIAL SQ ONE (19:26)
[2018-12-10] MEDS ORDERED: INSULIN REGULAR HUMAN 100 UNITS/ML *VIAL ONE (19:37)
--- NOTE | 2018-12-11 00:58 | PDOC ---
Documentation entered by Rain Nazario SCRIBE, acting as scribe for Sherine Joaquin MD. Sherine Joaquin MD: This documentation has been prepared by the Aravind hanley Brenda, SCRIBE, under my direction and personally reviewed by me in its entirety. I confirm that the documentation accurately reflects all work, treatment, procedures, and medical decision making performed by me. Attending Attestation - Resident Resident Name: TeaDixie - ED Attending Attestation I have performed the following: I have examined & evaluated the patient, The case was reviewed & discussed with the resident, I agree w/resident's findings & plan, Exceptions are as noted - HPI HPI: 12/10/18 20:40 The patient is a 73 year old female, with a significant PMH of HTN, DM, HLD, hypothyroidism, CKD , who presents to the emergency department with vaginal bleeding. As per patient, she had a similar episode 4 years ago, where she went to the OB, they did a scope exam and found everything to be normal, however they did find low platelets. She notes going through a couple of pads. Patient also reports that this bleeding is similar to her period, but notes being menopausal for 20 years. The patient denies chest pain, shortness of breath, headache and dizziness. Denies fever, chills, nausea, vomiting, diarrhea and constipation. Denies dysuria, frequency, urgency and hematuria. Allergies: NKA Past surgical history: Cholecystectomy: Social history: Denies any tobacco use, alcohol use or illicit drug use. - Physicial Exam PE: 12/10/18 21:10 GENERAL: Awake, alert, and fully oriented, in no acute distress HEAD: No signs of trauma EYES: PERRLA, EOMI, sclera anicteric, conjunctiva clear ENT: Auricles normal inspection, hearing grossly normal, nares patent, oropharynx clear without exudates. Moist mucosa NECK: Normal ROM, supple, no lymphadenopathy, JVD, or masses LUNGS: Breath sounds equal, clear to auscultation bilaterally. No wheezes, and no crackles HEART: Regular rate and rhythm, normal S1 and S2, no murmurs, rubs or gallops ABDOMEN: Soft, nontender, normoactive bowel sounds. No guarding, no rebound. No masses VAGINAL: Blood in the vaginal vault. EXTREMITIES: Normal range of motion, no edema. No clubbing or cyanosis. No cords, erythema, or tenderness NEUROLOGICAL: Cranial nerves II through XII grossly intact. Normal speech, normal gait SKIN: Warm, Dry, normal turgor, no rashes or lesions noted. - Medical Decision Making 12/11/18 06:51 Pt has thickened endometrium stripe. Pt has a calcification in the uterine leiyomyoma. Pt was clearly advised with an log rider on the filler blender phone, and she is aware that she needs to follow with MILLINERY DESIGNER for biopsy to make sure that she has no uterine mass or cancer. Pt and her understand and she feels well and she feels well at this time.
[2018-12-11 07:12] VITALS: BP 138/61; PULSE 72; TEMP 98.4
== END 2018-12-10 21:34 | disposition home or self-care (01) ==
LOC: JER 15:05
PROC: 3E013VG Introduction of Insulin into Subcutaneous Tissue, Percutaneous Approach (ICD-10-PCS; principal; 2018-12-10)
DX: N95.0 Postmenopausal bleeding (principal); N93.8 Other specified abnormal uterine and vaginal bleeding; D25.9 Leiomyoma of uterus, unspecified; E11.65 Type 2 diabetes mellitus with hyperglycemia; Z79.4 Long term (current) use of insulin; I12.9 Hypertensive chronic kidney disease with stage 1 through stage 4 chronic kidney disease, or unspecified chronic kidney disease; E11.22 Type 2 diabetes mellitus with diabetic chronic kidney disease; N18.9 Chronic kidney disease, unspecified; E78.5 Hyperlipidemia, unspecified; E03.9 Hypothyroidism, unspecified
CPT/HCPCS: 36415; 76830-TC; 80053; 81003; 82962; 85025; 85610; 86850; 86900; 86901; 87086; 96372; 99283-25

== ENCOUNTER 2019-03-02 11:47 | Emergency (ER) | payer OTHER ==
[2019-03-02 12:00] VITALS: BP 160/71; PULSE 97; TEMP 98.2; BMI 39.0
--- NOTE | 2019-03-02 12:39 | PDOC ---
History of Present Illness - General Chief Complaint: Vaginal Bleeding Stated Complaint: VAGINAL BLEEDING Time Seen by Provider: 03/02/19 12:36 History Source: Patient Exam Limitations: No Limitations - History of Present Illness Initial Comments: 03/02/19 12:39 Meenu Jorge is a 73yF w PMHx DM HTN HLD hypothyroid CKD presenting w vaginal bleeding. This morning, woke up finding underwear and bedsheets soaked w blood, 1 blood clot in toilet. Has not been actively bleeding since then. Denies fever, headache, lightheaded, nausea/vomiting, SOB, chest/AB pain, urinary/bowel movement changes. Has been seen on 12/10/18 w vaginal bleeding showing thickened endometrial stripe, calcification on uterine leiomyoma. Followed up with obgyn Dr Zayas, completed biopsy, referred to [facility] strategic communications specialist/onc for further evaluation but never followed up gynonc Dr damon insurance. Past History - Past Medical History Allergies/Adverse Reactions: Allergies Allergy/AdvReac Type Severity Reaction Status Date / Time aspirin AdvReac Unknown Verified 12/10/18 15:09 Home Medications: Ambulatory Orders Danazol [Danocrine -] 200 mg PO BID #0 capsule 09/21/12 Levothyroxine [Synthroid -] 25 mcg PO DAILY #0 tablet 09/21/12 Montelukast Na [Singulair -] 10 mg PO HS #0 tablet 09/21/12 Raloxifene HCl [Evista] 60 mg PO DAILY #0 tablet 09/21/12 Tiotropium [place] [Spiriva] 1 inh IH DAILY #0 inh 09/21/12 Diltiazem HCl [Diltiazem 24Hr ER] 1 mg PO DAILY 04/04/16 Clopidogrel Bisulfate [Plavix] 75 mg PO DAILY 07/10/18 Dapagliflozin Propanediol [Farxiga] 10 mg PO DAILY 07/10/18 Ergocalciferol (Vitamin D2) [Vitamin D2] 50,000 unit PO WEEKLY 07/10/18 Insulin Glargine,Hum.rec.anlog [Lantus Solostar PEN -] 25 units SQ BID 07/10/18 Insulin NPL/Insulin Lispro [Humalog Mix 50-50 Pen] 25 unit SQ BID 07/10/18 Low Moor-3 Fatty Acids/Fish Oil [Fish Oil 1,000 mg Capsule] 1 each PO DAILY Omeprazole [Prilosec (RX)] 40 mg PO DAILY 07/10/18 Pioglitazone HCl 45 mg PO DAILY 07/10/18 Rosuvastatin [Crestor -] 20 mg PO DAILY 07/10/18 Cefuroxime Axetil [Ceftin -] 250 mg PO BID #10 tablet 07/14/18 Lactobacillus Acidophilus [Bacid -] 1 each PO BID #10 tab 07/14/18 Potassium Chloride [K-Dur -] 20 meq PO BID #5 tablet.er 07/14/18 Anemia: No Asthma: Yes Cancer: No Cardiac Disorders: No CVA: No COPD: No CHF: No Dementia: No Diabetes: Yes GI Disorders: No Disorders: Yes (VAg bleeding november 2018) HTN: Yes Hypercholesterolemia: Yes Liver Disease: No Seizures: No Thyroid Disease: Yes - Surgical History Abdominal Surgery: No Appendectomy: No Cardiac Surgery: No Cholecystectomy: Yes Lung Surgery: No Neurologic Surgery: No Orthopedic Surgery: No - Immunization History Immunization Up to Date: Yes - Psycho Social/Smoking Cessation Hx Smoking Status: No Smoking History: Never smoked Have you smoked in the past 12 months: No Number of Cigarettes Smoked Daily: 0 Hx Alcohol Use: No Drug/Substance Use Hx: No Substance Use Type: None Hx Substance Use Treatment: No Review of Systems - Review of Systems Constitutional: No: Chills, Fever HEENTM: No: Eye Pain, Nose Pain, Throat Pain, Mouth Pain Respiratory: No: Cough, Shortness of Breath Cardiac (ROS): No: Chest Pain, Palpitations, Syncope ABD/GI: No: Abdominal Distended, Constipated, Diarrhea, Nausea, Vomiting : No: Burning, Dysuria, Discharge, Frequency, Flank Pain Musculoskeletal: No: Back Pain, Joint Pain, Joint Swelling, Muscle Pain Integumentary: No: Bruising, Dryness, Erythema Neurological: No: Headache, Seizure, Tingling, Tremors Psychiatric: No: Anxiety, Depression, Stressors Endocrine: No: Excessive Sweating, Flushing, Intolerance to Cold, Intolerance to Heat Hematologic/Lymphatic: No: Anemia *Physical Exam - Vital Signs Last Vital Signs Temp Pulse Resp BP Pulse Ox 98.2 F 97 H 20 160/71 96 03/02/19 11:58 03/02/19 11:58 03/02/19 11:58 03/02/19 11:58 03/02/19 11:58 - Physical Exam General Appearance: Yes: Nourished, Appropriately Dressed. No: Apparent Distress HEENT: positive: EOMI, BRITANY, Normal Voice, Hearing Grossly Normal. negative: Scleral Icterus (R), Scleral Icterus (L), Nasal Congestion, Rhinorrhea Respiratory/Chest: positive: Lungs Clear, Normal Breath Sounds. negative: Chest Tender, Respiratory Distress, Crackles, Rales, Rhonchi, Stridor, Wheezing Cardiovascular: positive: Regular Rhythm, Regular Rate, S1, S2. negative: Edema , Murmur Female Pelvic Exam: positive: cervical os closed, other (no active bleeding from cervical os). negative: normal external exam (gross dried blood around vaginal opening), CMT, discharge, adnexal tenderness Gastrointestinal/Abdominal: positive: Normal Bowel Sounds, Flat, Soft. negative : Tender, Organomegaly, Distended, Guarding, Rebound Musculoskeletal: negative: CVA Tenderness (R), CVA Tenderness (L) Extremity: positive: Normal Capillary Refill. negative: Swelling Integumentary: positive: Normal Color Neurologic: positive: Fully Oriented, Alert, Normal Response, Responsive. negative: Numbness, Confused, Disoriented ED Treatment Course - LABORATORY CBC & Chemistry Diagram: 03/02/19 13:25 03/02/19 13:25 Medical Decision Making - Medical Decision Making 03/02/19 13:12 CBC CMP coags T&S TVUS Pevic exam shows gross dried blood around vaginal opening, no bleeding from closed cervical os, no CMT/ovarian tenderness TVUS shows 2.2cm thickened endometrium w complex/hypoechoic densities in endometrial cavity, no free fluid Hgb 16.5, Cr 1.6 (baseline 1.8), BG 230, mildly elevated LFTs/ALP --- Meenu Jorge is a 73yF w PMHx DM HTN HLD CKD presenting w 1d vaginal bleeding. Hemodynamically stable, not anemic, no active bleeding from closed cervical os on exam. TVUS shows 2.2cm thickened endometrium w complex/ hypoechoic densities in endometrial cavity. Talked to OBGYN Dr Live, told to refer pt back to clinic to be set up with a different strategic communications specialist/onc. D/c home w Dr Live f/u Discharge - Discharge Information Problems reviewed: Yes Clinical Impression/Diagnosis: Post-menopausal bleeding Condition: Good Disposition: HOME - Admission No - Follow up/Referral Referrals: Rene Zayas MD [Staff Physician] - - Patient Discharge Instructions Patient Printed Discharge Instructions: DI for Vaginal Bleeding Additional Instructions: You were seen for vaginal bleeding. Your ultrasound shows that you have a thickened endometrium. Please make an appointment to see your OBGYN Dr Zayas regarding your bleeding. He will refer you to a different OBGYN doctor. Come back to the ED if you feel lightheaded, bleeding does not stop, or trouble breathing. - Post Discharge Activity
--- NOTE | 2019-03-02 13:32 | PDOC ---
Documentation entered by Nia Nazario SCRIBE, acting as scribe for Bonny Munoz MD. Bonny Munoz MD: This documentation has been prepared by the Araivnd hanley Adrianna, SCRIBE, under my direction and personally reviewed by me in its entirety. I confirm that the documentation accurately reflects all work, treatment, procedures, and medical decision making performed by me. Attending Attestation - Resident Resident Name: Aung Guzman - ED Attending Attestation I have performed the following: I have examined & evaluated the patient, The case was reviewed & discussed with the resident, I agree w/resident's findings & plan, Exceptions are as noted - HPI HPI: 03/02/19 13:25 Ms. Jorge is a 73 yo F w PMHx DM, HTN, HLD, hypothyroid, CKD who returns ot the ER for evaluation of vaginal bleeding The patient was seen here in November for similar symptoms She was referred to pre k special education teacher and is actually s/p endometrial biopsy She does not have her results and has been unable to follow up with the pre k special education teacher because of an insurance issue This morning, pt woke up to findblood in her underwear and on her bedsheets No active bleeding since then No lightheadedness or dizziness Denies fever, headache, lightheaded, nausea/vomiting, SOB, chest/AB pain, urinary/bowel movement changes. 03/02/19 13:26 - Physicial Exam PE: 03/02/19 13:28 GENERAL: The patient is in no acute distress. ENT: Moist mucous membranes. NECK: Normal range of motion, supple LUNGS: Breath sounds equal, clear to auscultation bilaterally. No wheezes, and no crackles. HEART: Regular rate and rhythm, normal S1 and S2 without murmur, rub or gallop. ABDOMEN: Soft, nontender, normoactive bowel sounds. PELVIC : per Dr Guzman EXTREMITIES: Normal range of motion, no edema. NEUROLOGICAL: Cranial nerves II through XII grossly intact. Normal speech. No focal neurological deficits. SKIN: Warm, Dry, normal turgor, no rashes or lesions noted. - Medical Decision Making 03/02/19 13:31 74-year-old female presenting to the emergency department again for postmenopausal bleeding. She is already undergone a work-up but has been unable to follow-up for the results because the language and literature division chair doesn't accept her insurance. We will do CBC to rule out anemia We will do a transvaginal ultrasound. We will attempt to figure out who this patient's INSIDE SALES SPECIALIST is. She will need to follow-up. 03/02/19 14:16 Laboratory Tests 03/02/19 03/02/19 13:25 13:25 WBC 8.6 Hgb 16.5 H Hct 49.8 H D Plt Count 146 INR 1.01 U/S thickened endometrium, mass in uterine cavity Call placed to patient's pre k special education teacher Dr. Zayas Told to refer pt back to clinic to be set up with a different pre k special education teacher/onc (who will accept her insurance) Pt will follow up with Dr Zayas Pt given copies of her results Clinical impression: post menopausal vaginal bleeding
[2019-03-02 13:58] LABS: INR 1.01 (0.83-1.09); PROTHROMBIN TIME (PATIENT) 11.9 SEC (9.7-13.0)
[2019-03-02 14:01] LABS: ACTIVATED PTT 35.8 SECONDS (25.2-36.5)
[2019-03-02 14:12] LABS: BASO % 0.7 % (0-2.0); EOS % 0.9 % (0-4.5); HEMATOCRIT 49.8 % (32.4-45.2); HEMOGLOBIN 16.5 GM/dL (10.7-15.3); LYMPH % 23.4 % (8-40); MCH 27.6 pg (25.7-33.7); MCHC 33.1 g/dl (32.0-36.0); MEAN CELL VOLUME 83.2 fl (80-96); MEAN PLT VOLUME 9.4 fl (7.5-11.1); MONO % 8.2 % (3.8-10.2); NEUT % 66.8 % (42.8-82.8); PLATELET COUNT 146 K/MM3 (134-434); RBC 5.98 M/mm3 (3.60-5.2); RDW 17.3 % (11.6-15.6); WHITE BLOOD COUNT 8.6 K/mm3 (4.0-10.0)
[2019-03-02 14:30] LABS: BLOOD UREA NITROGEN 22.5 mg/dL (7-18); CALCIUM 9.1 mg/dL (8.5-10.1); CREATININE 1.6 mg/dL (0.55-1.3); POTASSIUM 4.6 mmol/L (3.5-5.1); TOT PROT 7.1 g/dl (6.4-8.2)
== END 2019-03-02 16:25 | disposition home or self-care (01) ==
LOC: JER 11:47
DX: N95.0 Postmenopausal bleeding (principal); E78.00 Pure hypercholesterolemia, unspecified; E07.9 Disorder of thyroid, unspecified; J45.909 Unspecified asthma, uncomplicated; E11.22 Type 2 diabetes mellitus with diabetic chronic kidney disease; I12.9 Hypertensive chronic kidney disease with stage 1 through stage 4 chronic kidney disease, or unspecified chronic kidney disease; N18.9 Chronic kidney disease, unspecified; Z88.8 Allergy status to other drugs, medicaments and biological substances
CPT/HCPCS: 36415; 76830-TC; 80053; 85025; 85610; 85730; 86850; 86900; 86901; 99283-25